=== PATIENT | male | born 1950 | race Caucasian/White ===

== ENCOUNTER 2016-06-06 19:15 | Inpatient (IN) | payer MEDICARE, OTHER ==
[~2016-06-06] VITALS: Ht 185.4 cm; Wt 97.2 kg
--- NOTE | ~2016-06-06 | HEMODYNAMI ---
PATIENT:BIMAL PALOMINO MEDICAL RECORD: [id number] : 46 LOCATION[id number] ADMISSION DATE: 06/06/16 Generatedon:06/12/201615:56 Patient name: BIMAL PALOMINO Patient #: [id number] SSN: [id number] : 1950 Date of study: 06/12/2016 Page: Of Hemodynamic Procedure Report Patient Data Patient Demographics Procedure consent was obtained First Name: BIMAL Gender: Male Last Name: CANDELARIO : 1950 Patient #: [id number] Age: 66 year(s) Race: Unknown SSN: [id number] Additional ID: [id number] Contact details Address: [address] [place] [address] State: [place] City: [facility] [place] Zip code: [address] Past Medical History Allergies: No known allergies Admission Admission Data Admission Date: 06/06/2016 Admission Time: 20:39 Arrival Date: 06/06/2016 Arrival Time: 20:39 Admit Source: Other Insurance Payor: Medicare Room #: D.2310 Weight (lbs.): 192.7 Weight (kg.): 87.41 Lab Results Lab Result Date: 06/11/2016 Lab Result Time: 0:00 Biochemistry Name Units Result Min Max BUN mg/dl 118 --(----)-* 7 18 Creatinine mg/dl 3.7 --(----)-* 0.6 1.3 CBC Name Units Result Min Max Hemoglobin g/dl 12 *-(----)-- 13.5 17.5 Procedure Procedure Types Cath Procedure Diagnostic Procedure FFR/IVUS Intra-Coronary IVUS Initial PCI Procedure Coronary Stent Initial Procedure Description Procedure Date Procedure Date: 06/12/2016 Procedure Start Time: 15:41 Procedure End Time: 15:55 Procedure Staff Name Function Mike Gtz MD Performing Physician Rio Jones RT Scrub Rose Way RN Nurse Debra Aguero RT Monitor [place] RT Monitor Procedure Data Cath Procedure Fluoroscopy Diagnostic fluoroscopy Total fluoroscopy Time: 2.1 time: 2.1 min min Diagnostic fluoroscopy Total fluoroscopy dose: 185 dose: 185 mGy mGy Contrast Material Contrast Material Type Amount (ml) Isovue 370 57 Entry Location Entry Primary Successful Side Size Upsize Upsize Entry Closure Succes sful Closure Location (Fr) 1 (Fr) 2 (Fr) Remarks Device Remarks Femoral Left 6 Fr Vascade artery Short Closure System Estimated blood loss: 10 ml Procedure Complications No complications Procedure Medications Medication Administration Route Dosage Oxygen NC 2 l/min Heparin Flush Bag added to field 2 bags (1000units/500ml NS) Lidocaine 2% added to field 20 Versed I.V. 1 mg Fentanyl 50 mcg Versed I.V. 1 mg Fentanyl 50 mcg Heparin Bolus I.V. 4000 units Hemodynamics Rest HGB: 12 (g/dl) Heart Rate: 55 (bpm) Snapshots Pre Cath Intra NCS Post Cath Vital Signs Time Heart Resp SPO2 NIBP (mmHg) Rhythm Pain Sedation Rate (ipm) (%) Status Level (bpm) 15:26:11 55 20 95 143/67(119) SB 0 (11) 10(A) , No pain 15:30:33 54 18 94 141/63(114) SB 0 (11) 10(A) , No pain 15:34:56 52 15 95 128/56(98) SB 0 (11) 10(A) , No pain 15:39:04 49 16 96 117/55(88) SB 0 (11) 10(A) , No pain 15:43:18 50 23 95 118/55(97) SB 0 (11) 9(A) , No pain 15:47:35 48 18 95 110/46(79) SB 0 (11) 9(A) , No pain 15:50:56 47 16 95 110/48(87) SB 0 (11) 9(A) , No pain 15:55:02 47 18 96 106/45(81) SB 0 (11) 9(A) , No pain Medications Time Medication Route Dose Verified Delivered Reason Notes Effectiveness by by 15:24:57 Oxygen NC 2 Mike Rose Per physician l/min Ulisses Way RN 15:25:07 Heparin Flush added 2 Mike Mckeon used for Bag to bags Ulisses Gtz MD procedure (1000units/500ml field NS) 15:25:16 Lidocaine 2% added 20ml Mike Marterey used for to vial Ulisses Gtz MD procedure field 15:38:58 Versed I.V. 1 mg Mike Rose for sedation Ulisses Way RN 15:39:06 Fentanyl 50 Mike Rose for sedation mcg Ulisses Way RN 15:41:28 Versed I.V. 1 mg Mike Rose for sedation Ulisses [address] RN 15:41:32 Fentanyl 50 Mike Rose for sedation mcg Ulisses Way RN 15:43:06 Heparin Bolus I.V. 4000 Mike Rose for dose units Ulisses Way RN anticoagulation verified by dr gtz Procedure Log Time Note 15:00:57 [place] RT(R) sent for patient. Start room use. 15:02:51 ACC Patient presents with Unstable Angina CCS Anginal Class 2--Slight limitation of ordinary activity. 15:02:54 Diagnostic Cath status Urgent 15:03:07 Time tracking: Regular hours 15:03:30 Plan of Care:Hemodynamics will remain stable., Cardiac rhythm will remain stable., Comfort level will be maintained., Respiratory function will remain adequate., Patient/ family verbilizes understanding of procedure., Procedure tolerated without complication., Recovers from procedure without complications.. 15:03:37 Patient received from ICU to CCL 1 Alert and oriented. Tansferred to table in Supine position. 15:03:50 Warm blankets applied, and chirag hugger turned on for patient comfort. 15:03:51 Correct patient and procedure confirmed by team. 15:03:52 Signed procedure consent form obtained from patient. 15:03:53 ECG and BP/O2 sat monitors applied to patient. 15:23:00 H&P Date Dictated: 06/11/2016 Within 30 days and on chart.. 15:23:04 Pre-procedure instructions explained to patient. 15:23:04 Pre-op teaching completed and patient verbalized understanding. 15:23:06 Family in waiting room. 15:23:07 Patient NPO since Midnight. 15:23:14 Is the patient allergic to Iodine/contrast media? Yes. 15:24:49 Vital chart was started 15:24:57 Oxygen 2 l/min NC was given by Rose Way RN; Per physician; 15:25:07 Heparin Flush Bag (1000units/500ml NS) 2 bags added to field was given by Mike Gtz MD; used for procedure; 15:25:12 Baseline sample Acquired. 15:25:16 Lidocaine 2% 20ml vial added to field was given by Mike Gtz MD; used for procedure; 15:25:16 Rhythm: sinus bradycardia 15:25:17 Full Disclosure recording started 15::29 Patient allergic to No known allergies 15:25:31 Is patient on blood thinner?Yes 15:25:33 ACC The patient was administered the following blood thiners within the last 24 hours: ACCPlavix 15:25:40 Patient diabetic? Yes. 15:25:42 If diabetic: On Metformin? No 15:25:44 Previous problem with sedation/anesthesia? No ? 15:25:49 Snore? Yes 15:25:50 Sleep apnea? No 15:25:51 Deviated septum? No 15:25:52 Opens mouth fully? Yes 15:25:53 Sticks out tongue? Yes 15:25:55 Airway obstruction? No ? 15:26:05 Dentures? No but does have lost teeth 15:26:09 Pre procedure: left dorsailis pedis pulse 1+ Palpable, but thready & weak; easily obliterated 15:26:13 Patient pain scale 0/10 ?. 15:26:24 IV patent on arrival in right hand with 0.9% NaCl at O. 15:26:27 Lab results completed and on chart. 15:26:31 Left groin area was prepped with chlora-prep and draped in sterile fashion 15:26:32 Alarms reviewed by R. N. 15:26:33 Sharps counted by scrub and verified by R.N. 15:26:36 Use device set Femoral PCI 15:26:38 Tegaderm 4 x 4 opened to sterile field. 15:26:38 Acist Manifold opened to sterile field. 15:26:39 Acist Syringe opened to sterile field. 15:26:40 Acist Hand Control opened to sterile field. 15:26:40 Bag Decanter opened to sterile field. 15::41 Cardinal Cath Pack opened to sterile field. 15:26:41 Terumo 6Fr Northport Sheath opened to sterile field. 15:26:41 St Sal 260cm J .035 wire opened to sterile field. 15:26:42 Merit BasixCompak Inflation Kit opened to sterile field. 15:26:50 Rosenbaum Whisper J 300cm 0.014 guide wire opened to sterile field. 15:26:51 Meadow [place] Eagleye IVUS Catheter opened to sterile field. ::44 --------ALL STOP TIME OUT------ 15::44 Final Timeout: patient, procedure, and site verified with staff and physician. All members of the team are in agreement. 15:38:47 Left groin site verified by team. 15:38:50 Physical assessment completed. ASA score P 2 - A patient with mild systemic disease as per Mike Gtz MD. 15:38:57 Sedation plan: IV Moderate Sedation Versed, Fentanyl 15:38:58 Versed 1 mg I.V. was given by Rose Way RN; for sedation; 15:39:06 Fentanyl 50 mcg was given by Rose Way RN; for sedation; 15:41:28 Versed 1 mg I.V. was given by Rose Way RN; for sedation; 15:41:32 Fentanyl 50 mcg was given by Rose Way RN; for sedation; 15:41:45 Procedure started. 15:41:52 Local anesthetic to left femerol artery with Lidocaine 2% by Mike Gtz MD.INITIAL ACCESS ONLY 15:42:08 A 6 Fr Short sheath was inserted into the Left Femoral artery 15:42:30 Cordis 6FR XBLAD 3.5 guide catheter opened to sterile field. 15:43:06 Heparin Bolus 4000 units I.V. was given by Rose Way RN; for anticoagulation; dose verified by dr gtz 15:43:20 6 Fr XBLAD 3.5 guide catheter was inserted over the wire 15:44:11 Whisper wire advanced. 15:44:20 Wire advanced across lesion. 15:44:29 IVUS catheter advanced over wire. 15:47:19 IVUS pass to LAD lesion performed. 15:47:20 IVUS catheter removed over wire. 15:48:34 Inflation Number: 1 A [place] NanoSystemstronic Integrity 3.5 X 22 stent was prepped and advanced across the Prox LAD. The stent was deployed at 13 SEN for 0:10 (min:sec). 15:48:45 Vascade 6/7 Fr Closure Device opened to sterile field. 15:49:00 Sheath removed intact; hemostasis achieved with Vascade Closure System to the Left Femoral artery. 15:49:08 Procedure ended.(Physican Out) 15:52:53 Fluoroscopy time 02.10 minutes. 15:53:04 Fluoroscopy dose: 185 mGy 15:53:04 Flurop Dose total: 185 15:53:07 Contrast amount:Isovue 370 57ml. 15:53:08 Sharps counted by scrub and verified by R.N. 15:53:10 Insertion/operative site no bleeding no hematoma. 15:53:16 Post-op/insertion site Left Femoral artery dressed using a 4 x 4 and Tegaderm. 15:53:18 Post Procedure Pulses reassessed and unchanged 15:53:20 Post-procedure physical assessment completed. ASA score P 2 - A patient with mild systemic disease as per Mike Gtz MD. 15:53:22 Post procedure rhythm: unchanged. 15:53:26 Estimated blood loss: 10 ml 15:53:27 Post procedure instruction explained to patient.Patient verbalizes understanding. 15:53:28 Patient needs reinforcement of post procedure teaching. 15:53:43 Procedure type changed to Cath procedure, Diagnostic procedure, FFR/IVUS, Intra-Coronary IVUS Initial, PCI procedure, Coronary Stent Initial 15:53:48 Procedure Complication : No complications 15:54:17 Procedure and supply charges have been captured, reviewed, submitted and are correct. 15:55:01 Vital chart was stopped 15:55:01 See physician's report for complete and final results. 15:55:47 Report given to ICU. 15:55:50 Patient transfered to ICU with Bed. 15:55:53 Procedure ended. 15:55:53 Full Disclosure recording stopped 15:56:30 ACC-PCI Only Patient was given prescriptions, or instructed by Mike Gtz MD to start/continue the following medications upon discharge: Plavix 15:56:31 End room use (Document Last) Intervention Summary Intervention Notes Time ActionType Lesion and Equipment Action# Pressure Duration Attributes Used 15:48:34 Place stent Prox LAD Medtronic 1 13 00:10 Integrity 3.5 X 22 stent Device Usage Item Name Manufacture Quantity Catalog Hospital Part Current Minima l Lot# / Number Charge Number Stock Stock Serial# Code Tegaderm 4 1 [id number] 120908 5 x 4 Acist Acist 1 53585 604748 109227 806195 5 Manifold Medical Systems Inc Acist Acist 1 98795 424884 537163 624907 20 Syringe Medical Systems Inc Acist Hand Acist 1 19767 342318 522246 461012 5 Control Medical Systems Inc Bag Microtek 1 2002S 886198 92801 254089 5 Decanter Medical Inc. Cardinal Cardinal 1 [id number] 264686 24601 279258 5 Cath Pack Health Terumo 6Fr Terumo 1 [id number] 960496 342647 459276 [address] Sal St Sal 1 618974 320483 503181 766197 30 260cm J .035 wire [facility] 1 [id number] 383052 865425 611278 15 BasixCompak Medical Inflation Kit Rosenbaum Rosenbaum 1 [id number] 110612 125801 935639 5 Whisper J Vascular 300cm 0.014 guide wire Meadow Meadow 1 [id number] 104843 505689 057362 8 [place] Eagleye IVUS Catheter Cordis 6FR Cardinal 1 [id number] 297314 929965 488653 10 XBLAD 3.5 Health guide catheter Medtronic Medtronic 1 [id number] 479535 241178 0 [id number] Integrity 3.5 X 22 stent Vascade 6/7 Cardiva 1 [id number] 461823 381465 499404 5 Fr Closure Medical, Device Inc. Signature Audit [place] Stage Time Signature Unsigned Intra-Procedure 06/12/2016 [place] 3:56:51 PM RT(R) Signatures Monitor : Debra Aguero RT Signature : Date : Time : Monitor : [place] RT Signature : Date : Time : [place] [address] [place] [address]
--- NOTE | ~2016-06-06 | HEMODYNAMI ---
PATIENT:BIMAL PALOMINO MEDICAL RECORD: [id number] : 46 LOCATION[id number] ADMISSION DATE: 06/06/16 Generatedon:06/11/201611:07 Patient name: BIMAL PALOMINO Patient #: [id number] SSN: [id number] : 1950 Date of study: 06/11/2016 Page: Of Hemodynamic Procedure Report Patient Data Patient Demographics Procedure consent was obtained First Name: BIMAL Gender: Male Last Name: CANDELARIO : 1950 Patient #: [id number] Age: 66 year(s) Race: Unknown SSN: [id number] Additional ID: [id number] Contact details Address: [address] [place] [address] State: [place] City: [facility] Zip code: [address] Admission Admission Data Admission Date: 06/06/2016 Admission Time: 20:39 Arrival Date: 06/06/2016 Arrival Time: 20:39 Admit Source: Other Insurance Payor: Medicare Room #: D.2310 Weight (lbs.): 192.7 Weight (kg.): 87.41 Lab Results Lab Result Date: 06/11/2016 Lab Result Time: 0:00 Biochemistry Name Units Result Min Max BUN mg/dl 118 --(----)-* 7 18 Creatinine mg/dl 3.7 --(----)-* 0.6 1.3 CBC Name Units Result Min Max Hemoglobin g/dl 12 *-(----)-- 13.5 17.5 Procedure Procedure Types Cath Procedure Diagnostic Procedure LHC [facility] w/Coronaries PCI Procedure Coronary Stent Initial Procedure Description Procedure Date Procedure Date: 06/11/2016 Procedure Start Time: 10:51 Procedure End Time: 11:01 Procedure Staff Name Function Mike Gtz MD Performing Physician Rio Jones RT Scrub Rose Way RN Nurse West Davis RT Grocery Stock Clerk Debra Aguero RT Monitor Procedure Data Cath Procedure Fluoroscopy Diagnostic fluoroscopy Total fluoroscopy Time: 2.7 time: 2.7 min min Diagnostic fluoroscopy Total fluoroscopy dose: 371 dose: 371 mGy mGy Contrast Material Contrast Material Type Amount (ml) Isovue 370 46 Entry Location Entry Primary Successful Side Size Upsize Upsize Entry Closure Succes sful Closure Location (Fr) 1 (Fr) 2 (Fr) Remarks Device Remarks Femoral Right 5 Fr 7 Fr Exoseal artery Short Estimated blood loss: 5 ml Diagnostic catheters Device Type Used For End Catheter Placement Cordis 5Fr Pigtail LV Angiography Catheter (MP) Cordis 5Fr JL 4.0 Left Coronary Catheter (MP) Angiography Cordis 5Fr 3DRC Catheter Right Coronary (MP) Angiography Procedure Complications No complications Procedure Medications Medication Administration Route Dosage Oxygen NC 2 l/min Heparin Flush Bag added to field 2 bags (1000units/500ml NS) Lidocaine 2% added to field 20 Versed I.V. 1 mg Fentanyl I.V. 50 mcg Fentanyl I.V. 25 mcg Heparin Bolus I.V. 4000 units Integrilin (Bolus I.V. 7.9 ml 2mg/ml) Plavix P.O. 600 mg Hemodynamics Rest Heart Rate: 69 (bpm) Pressure Samples Time Site Value (mmHg) Purpose Heart Use Rate(bpm) 10:52 LV 64/20,25 Snapshot 67 Snapshots Pre Cath Intra NCS Post Cath Vital Signs Time Heart Resp SPO2 NIBP (mmHg) Rhythm Pain Sedation Rate (ipm) (%) Status Level (bpm) 10:41:56 65 18 94 142/73(118) NSR 0 (11) 10(A) , No pain 10:46:12 70 19 94 143/74(113) NSR 0 (11) 10(A) , No pain 10:50:32 64 18 95 129/63(94) NSR 0 (11) 9(A) , No pain 10:54:48 63 17 96 119/60(83) NSR 0 (11) 9(A) , No pain 10:59:00 61 16 95 105/56(84) NSR 0 (11) 9(A) , No pain 11:04:24 66 16 96 118/57(89) NSR 0 (11) 10(A) , No pain Medications Time Medication Route Dose Verified Delivered Reason Notes Effectiveness by by 10:44:04 Oxygen NC 2 Mike Rose Per physician l/min Ulisses Way RN 10:44:11 Heparin Flush added 2 Mike Mike for local Bag to bags Ulisses Gtz MD anesthetic (1000units/500ml field NS) 10:44:18 Lidocaine 2% added 20ml Mike Mckeon used for to vial Ulisses Gtz MD procedure field 10:48:32 Fentanyl I.V. 50 Mike Rose for sedation mcg Ulisses Way RN 10:48:34 Versed I.V. 1 mg Mike Rose for sedation Ulisses Way RN 10:52:35 Fentanyl I.V. 25 Mike Rose for sedation mcg Ulisses Way RN 10:56:25 Heparin Bolus I.V. 4000 Mike Rose for dose units Ulisses Way RN anticoagulation verified with dr gtz 10:57:22 Integrilin I.V. 7.9 Rose Rose for (Bolus 2mg/ml) ml Rayna Way RN anticoagulation RN 11:03:42 Plavix P.O. 600 Rose Rose for mg Rayna Way RN antiplatelet RN therapy Procedure Log Time Note 10:07:22 ACC Patient presents with Unstable Angina CCS Anginal Class 2--Slight limitation of ordinary activity. 10:07:24 Diagnostic Cath status Urgent 10:07:27 [place] Davis RT(R) sent for patient. Start room use. 10:17:51 Time tracking: Regular hours 10:18:55 Plan of Care:Hemodynamics will remain stable., Cardiac rhythm will remain stable., Comfort level will be maintained., Respiratory function will remain adequate., Patient/ family verbilizes understanding of procedure., Procedure tolerated without complication., Recovers from procedure without complications.. 10:21:08 Informed consent obtained and on chart 10:24:26 Admit Source: Other 10::46 Lab Result : Creatinine 3.7 mg/dl 10::46 Lab Result : BUN 118 mg/dl 10::46 Lab Result : Hemoglobin 12 g/dl 10:33:58 Patient received from ICU to CCL 1 Alert and oriented. Tansferred to table in Supine position. 10:33:59 Warm blankets applied, and chirag hugger turned on for patient comfort. 10:33:59 Correct patient and procedure confirmed by team. 10:34:02 ECG and BP/O2 sat monitors applied to patient. 10:40:52 Vital chart was started 10:40:57 Rhythm: sinus rhythm 10:40:59 Full Disclosure recording started 10:41:09 H&P Date Dictated: 06/11/2016 Within 30 days and on chart.. 10:41:10 Pre-procedure instructions explained to patient. 10:41:11 Pre-op teaching completed and patient verbalized understanding. 10:41:13 Family unavailable. 10:41:21 Patient NPO since Midnight. 10:41:22 Is the patient allergic to Iodine/contrast media? No. 10:41:25 Is patient on blood thinner?No 10:41:27 ACC The patient was administered the following blood thiners within the last 24 hours: None 10:41:31 Patient diabetic? Yes. 10:41:34 Previous problem with sedation/anesthesia? Unknown ? 10:41:36 Snore? Yes 10:41:37 Sleep apnea? Unknown 10:41:39 Deviated septum? Unknown 10:41:41 Opens mouth fully? Unknown 10:41:42 Sticks out tongue? Unknown 10:41:44 Airway obstruction? Unknown ? 10:41:46 Dentures? Unknown ? 10:41:49 Pre procedure: right dorsailis pedis pulse 1+ Palpable, but thready & weak; easily obliterated 10:42:05 PT HAS A RESERVE LEFT ARM 10:42:10 Patient pain scale 0/10 ?. 10:42:38 IV patent on arrival in right hand with 0.9% NaCl at KVO. 10:43:36 Patient arrived on Potassium at 100 ml/hr IV drip right antecubital 10:43:48 Lab results completed and on chart. 10:43:53 Right groin area was prepped with chlora-prep and draped in sterile fashion 10:43:54 Alarms reviewed by R. N. 10:43:54 Sharps counted by scrub and verified by R.N. 10:44:04 Oxygen 2 l/min NC was given by Rose Way RN; Per physician; 10:44:05 Use device set Femoral Dx 10:44:06 Tegaderm 4 x 4 opened to sterile field. 10:44:07 Acist Manifold opened to sterile field. 10:44:08 Acist Hand Control opened to sterile field. 10:44:09 Acist Syringe opened to sterile field. 10:44:09 Bag Decanter opened to sterile field. 10:44:10 Cardinal Cath Pack opened to sterile field. 10:44:10 Terumo 5Fr Wolsey Sheath opened to sterile field. 10:44:11 Heparin Flush Bag (1000units/500ml NS) 2 bags added to field was given by Mike Gtz MD; for local anesthetic; 10:44:11 St Sal 260cm J .035 wire opened to sterile field. 10:44:12 Cordis Infinity 5Fr Multipack catheter opened to sterile field. 10:44:18 Lidocaine 2% 20ml vial added to field was given by Mike Gtz MD; used for procedure; 10:46:33 Patient Weight : 87.41 kg 10:46:34 Insurance Payor : Medicare 10:46:40 Arrival Date: 06/06/2016 8:39:00 PM 10:48:18 Physician arrived 10:48:18 --------ALL STOP TIME OUT------ 10:48:19 Final Timeout: patient, procedure, and site verified with staff and physician. All members of the team are in agreement. 10:48:21 Right groin site verified by team. 10:48:24 Physical assessment completed. ASA score P 3 - A patient with severe systemic disease as per Mike Gtz MD. 10:48:28 Sedation plan: IV Moderate Sedation Versed, Fentanyl 10:48:32 Fentanyl 50 mcg I.V. was given by Rose Way RN; for sedation; 10:48:34 Versed 1 mg I.V. was given by Rose Way RN; for sedation; 10:48:56 Procedure started. 10:50:01 Zero performed for pressure channel P1 10:50:13 Zero performed for pressure channel P1 10:50:20 Zero performed for pressure channel P1 10:50:32 Zero performed for pressure channel P1 10:50:47 Zero performed for pressure channel P1 10:51:42 Local anesthetic to right femoral artery with Lidocaine 2% by Mike Gtz MD.INITIAL ACCESS ONLY 10:52:01 A 5 Fr sheath was inserted into the Right Femoral artery 10:52:10 A Cordis 5Fr Pigtail Catheter (MP) was advanced over the wire and used for LV Angiography. 10:52:19 Baseline sample Acquired. 10:52:35 Fentanyl 25 mcg I.V. was given by Rose Way RN; for sedation; 10:52:49 LV hemodynamics recorded. 10:52:50 LV gram done using MERINO 10:52:53 Injector settings: Ml/sec: 5, Volume: 15, 10:52:58 EF : 50 % 10:53:01 Catheter removed. 10:53:05 A Cordis 5Fr JL 4.0 Catheter (MP) was advanced over the wire and used for Left Coronary Angiography. 10:53:45 LCA angiography performed. 10:53:48 Injector settings: Ml/sec: 3, Volume: 6, 10:54:09 Catheter removed. 10:54:14 A Cordis 5Fr 3DRC Catheter (MP) was advanced over the wire and used for Right Coronary Angiography. 10:54:39 RCA angiography performed. 10:55:02 Injector settings: Ml/sec: 3, Volume: 6+, 10:55:04 Catheter removed. 10:55:09 Proceeding to intervention. 10:55:32 Rosenbaum Whisper J 300cm 0.014 guide wire opened to sterile field. 10:55:34 Terumo 7Fr Wolsey Sheath opened to sterile field. 10:55:34 2[place] BasixCompak Inflation Kit opened to sterile field. 10:56:25 Heparin Bolus 4000 units I.V. was given by Rose Way RN; for anticoagulation; dose verified with dr gtz 10:56:28 Medtronic Launcher 7Fr AR 2.0 guide catheter opened to sterile field. 10:56:39 Sheath upsized to a 7 Fr Short. 10:56:44 7 Fr ar 2 guide catheter was inserted over the wire 10:56:48 whisper wire advanced. 10:57:22 Integrilin (Bolus 2mg/ml) 7.9 ml I.V. was given by Rose Way RN; for anticoagulation; 10:59:24 Inflation Number: 1 A Medtronic Integrity 3.5 X 26 stent was prepped and advanced across the Mid RCA. The stent was deployed at 17 SEN for 0:10 (min:sec). 10:59:29 Stent catheter was removed intact over wire. 10:59:30 Wire removed. 10:59:30 Guide catheter removed. 10:59:42 Cordis 7Fr Exoseal opened to sterile field. 11:00:23 Sheath removed intact; hemostasis achieved with Exoseal to the Right Femoral artery. 11:00:25 Procedure ended.(Physican Out) 11:00:37 Fluoroscopy time 02.70 minutes. 11:00:43 Fluoroscopy dose: 371 mGy 11:00:43 Flurop Dose total: 371 11:00:48 Contrast amount:Isovue 370 46ml. 11:01:02 Sharps counted by scrub and verified by R.N. 11:01:04 Insertion/operative site no bleeding no hematoma. 11:01:06 Post-op/insertion site Right Femoral artery dressed using a 4 x 4 and Tegaderm. 11:01:09 Post right femoral artery:stable 11:01:11 Post Procedure Pulses reassessed and unchanged 11:01:14 Post procedure rhythm: unchanged. 11:01:17 Estimated blood loss: 5 ml 11:01:19 Post procedure instruction explained to patient.Patient verbalizes understanding. 11:01:19 Patient needs reinforcement of post procedure teaching. 11:01:33 Procedure type changed to Cath procedure, Diagnostic procedure, LHC, LHC w/Coronaries, PCI procedure, Coronary Stent Initial 11:01:34 Procedure and supply charges have been captured, reviewed, submitted and are correct. 11:01:39 Procedure Complication : No complications 11:01:41 Vital chart was stopped 11:01:41 See physician's report for complete and final results. 11:01:46 Report given to ICU. 11:01:48 Patient transfered to ICU with Stretcher. 11:01:49 Procedure ended. 11:01:49 Full Disclosure recording stopped 11:02:04 ACC-PCI Only Patient was given prescriptions, or instructed by Mike Gtz MD to start/continue the following medications upon discharge: Plavix 11:02:05 End room use (Document Last) 11:03:42 Plavix 600 mg P.O. was given by Rose Way RN; for antiplatelet therapy; Intervention Summary Intervention Notes Time ActionType Lesion and Equipment Action# Pressure Duration Attributes Used 10:59:24 Place stent Mid RCA Medtronic 1 17 00:10 Integrity 3.5 X 26 stent Device Usage Item Name Manufacture Quantity Catalog Hospital Part Current Minimal Lot# / Number Charge Number Stock Stock Serial# Code Tegaderm 4 3M 1 1626 [id number] [id number] 5 x 4 Acist Acist 1 38280 698406 349087 207753 5 Manifold Medical Systems Inc Acist Hand Acist 1 53519 188609 595770 841311 5 Control Medical Systems Inc Acist Acist 1 61426 425074 621179 064525 20 Syringe Medical Systems Inc Bag Microtek 1 2002S 2499444 01338 174607 5 DecProperati Medical Inc. Cardinal Cardinal [address] 491286 56773 208210 5 Cath Pack Health Terumo 5Fr Terumo 1 [id number] 579405 746022 270726 [address] Sal St Sal 1 123868 253975 466050 412894 30 260cm J .035 wire Cordis Cardinal 1 [id number] 849503 32569 984617 30 Infinity Health 5Fr Multipack catheter Cordis 5Fr Cardinal 1 032729 5 Pigtail Health Catheter (MP) Cordis 5Fr Cardinal 1 427177 5 JL 4.0 Health Catheter (MP) Cordis 5Fr Cardinal 1 578619 5 3DRC Health Catheter (MP) Rosenbaum Rosenbaum 1 [id number] 460262 917197 365942 5 Whisper J Vascular 300cm 0.014 guide wire Terumo 7Fr Terumo 1 [id number] 932672 160093 099214 5 Wolsey Sheath [facility] Merit 1 [id number] 597615 519494 612850 15 [facility] Medical Inflation Kit Medtronic Medtronic 1 [id number] 817488 645674 831095 0 Launcher 7Fr AR 2.0 guide catheter Medtronic Medtronic 1 [id number] 851460 001094 822122 0 [id number] Integrity 3.5 X 26 stent Cordis 7Fr Cardinal 1 EX700 415049 541524 690821 5 [facility] Health Signature Audit [place] Stage Time Signature Unsigned Intra-Procedure 06/11/2016 Debra Aguero 11:07:08 AM RT(R) Signatures Monitor : Debra Aguero RT Signature : Date : Time : [facility] [address] [place] [address]
[2016-06-06 19:48] LABS: APTT 29.4 SECONDS (22.8-39.4); INR 1.19 (0.85-1.17)
[2016-06-06 19:56] LABS: ALBUMIN 3.3 g/dL (3.4-5.0); ALKALINE PHOSPHATASE 84 U/L (46-116); ALT (SGPT) 34 U/L (10-68); BILIRUBIN - TOTAL 0.63 mg/dL (0.2-1.3); CALC OSMOLALITY 319 mosm/kg (275-300); CALCIUM 10.2 mg/dL (8.5-10.1); CHLORIDE - SERUM 102 mmol/L (98-107); CREATININE - SERUM 3.4 mg/dL (0.6-1.3); GLUCOSE 392 mg/dL (74-106); POTASSIUM - SERUM 3.1 mmol/L (3.5-5.1); PROTEIN - SERUM 6.7 g/dL (6.4-8.2); SODIUM 142 mmol/L (136-145); UREA NITROGEN 70 mg/dL (7-18); eGFR NON AFRICAN AMERICAN 19 mL/min (90-120)
[2016-06-06 20:06] LABS: CKMB 2.6 U/L (0.0-3.6); CREATINE KINASE 132 UL (21-232); TROPONIN-I 0.058 ng/mL (0.000-0.060)
[2016-06-06 20:18] LABS: BASOPHILS 0.2 % (0.0-2.0); EOSINOPHILS 2.5 % (0-7); HEMATOCRIT 31.7 % (42.0-54.0); HEMOGLOBIN 10.2 g/dL (13.5-17.5); IMMATURE GRANULOCYTES 0.9 % (0-5); LYMPHOCYTES 24.9 % (15-50); MCH 31.7 pg (26.0-34.0); MCHC 32.2 g/dL (31.0-37.0); MCV 98.4 fL (80.0-100.0); MEAN PLATELET VOLUME 11.3 fL (7.4-10.4); NEUTROPHILS 65.5 % (40-80); PLATELET COUNT 223 10x3/uL (130-400); RBC 3.22 10x6/uL (4.20-6.10); WBC 13.9 10x3/uL (4.8-10.8)
--- NOTE | 2016-06-06 21:30 | NUR ---
UPDATE GIVEN TO DR. SORIA, NEW ORDERS RECIEVED,
[2016-06-06 21:33] VITALS: BP 160/92; BMI 28.0
--- NOTE | 2016-06-06 21:49 | NUR ---
PT RECIEVED. FAMILY AT BEDSIDE. DR EDUARDO BENAVIDEZ. NEW ORDERS RECIEVED. WILL CONTINUE TO MONITOR.
[2016-06-06 22:00] VITALS: BP 152/67
[2016-06-06 23:00] VITALS: BP 167/78
--- NOTE | 2016-06-06 23:45 | NUR ---
PT FAMILY GIVEN UDPATE. VSS NO NEW CHANGES AT THIS TIME. WILL CONTINUE TO MONITOR.
[2016-06-07] VITALS (25 sets, daily range): BP systolic 100–152; BP diastolic 54–78; Ht 185.4 cm; Wt 97.2 kg
--- NOTE | 2016-06-07 01:17 | NUR ---
VENT ALARMING. ORAL CARE ADM. NEEDS MET
--- NOTE | 2016-06-07 03:20 | NUR ---
REASSESSMENT COMPLETE PER FLOW SHEET. NO NEW CHANGES AT THIS TIME. WILL COTINUE TO MONITOR.
--- NOTE | 2016-06-07 04:12 | NUR ---
REASSESSMENT COMPLETE PER FLOW SHEET. VSS. NO NEW CHANGES AT THIS TIME. WILL CNOTINUE TO MONITOR.
[2016-06-07 05:24] LABS: BASOPHILS 0.1 % (0.0-2.0); EOSINOPHILS 0.1 % (0-7); HEMATOCRIT 27.7 % (42.0-54.0); IMMATURE GRANULOCYTES 0.3 % (0-5); LYMPHOCYTES 6.5 % (15-50); MCH 30.7 pg (26.0-34.0); MCHC 32.5 g/dL (31.0-37.0); MONOCYTES 6.4 % (2-11); NEUTROPHILS 86.6 % (40-80); RBC 2.93 10x6/uL (4.20-6.10); RDW 15.8 % (11.5-14.5); WBC 11.8 10x3/uL (4.8-10.8)
--- NOTE | 2016-06-07 05:46 | NUR ---
REPOSITIONED UP IN BED. VSS NO NEW CHANGES AT THIS TIME. WILL CONTINUE TO MONITOR.
[2016-06-07 06:01] LABS: MCV 94.5 fL (80.0-100.0); PLATELET COUNT 178 10x3/uL (130-400)
[2016-06-07 06:29] LABS: ANION GAP 14.9 mmol/L (8-16); CALCIUM 9.3 mg/dL (8.5-10.1); CARBON DIOXIDE 25.5 mmol/L (21.0-32.0); CREATININE - SERUM 3.2 mg/dL (0.6-1.3); POTASSIUM - SERUM 3.4 mmol/L (3.5-5.1)
[2016-06-07 06:37] LABS: TROPONIN-I 0.675 ng/mL (0.000-0.060)
--- NOTE | 2016-06-07 07:00 | NUR ---
REC'D CARE OF PT. SEDATED ON VENT.FOLLOWS COMMANDS.
--- NOTE | 2016-06-07 07:29 | NUR ---
TRYING TO PULL AT ETT. AGITATED. DIPRIVAN BEING TITRATED TO EFFECT.VSS.
--- NOTE | 2016-06-07 07:41 | NUR ---
INITIAL ASSESSMENT COMPLETED PER FLOW SHEET. ON VENT. AC RATE OF 20. TV 600. PEEP OF 5. ON 50% FIO2. OGT TO LIWS. PLACEMENT VIERIFIED WITH SMALL AIR BOLUS AUSCULTATED OVER GASTRIC REGION. RIGHT AC PIV WITH NS AT KVO AND DIPRIVAN BEING TITRTATED TO EFFECT. NO S/S OF INFILTATION. WALL PATENT TO GRAVITY WITH CL Y RETURNED IN BAG. SCD'S. FOLLOWS COMMANDS. PPP. CPOC.
--- NOTE | 2016-06-07 07:51 | NUR ---
DESATS IN 80%. NUZHAT RT AT BEDSIDE.INCREASING FIO2 TO 70%.
--- NOTE | 2016-06-07 08:19 | NUR ---
TO CT FOR CT OF HEAD AND BACK WITHOUT INCIDENT. ACCOPMANIED BY NUZHAT ODOM FOR VENT MANAGEMENT.
--- NOTE | 2016-06-07 08:45 | NUR ---
SEDATED TO RIKERS OF 2-3.
--- NOTE | 2016-06-07 08:55 | NUR ---
PATIENT IS ON THE VENT AND SEDATED. HE IS UNABLE TO ANSWER QUESTIONS. I HAVE NOT SEEN ANY FAMILY HERE TO INTERVIEW. CM TO FOLLOW.
--- NOTE | 2016-06-07 09:18 | NUR ---
FAMILY AT BEDSIDE. UPDATED.
--- NOTE | 2016-06-07 10:54 | NUR ---
REASSESSMENT COMPLETED PER FLOW SHEET. NO ACUTE CHANGES.
--- NOTE | 2016-06-07 12:00 | NUR ---
FAMILY AT [facility]. UPDATED.
--- NOTE | 2016-06-07 14:00 | NUR ---
REMAINS SEDATED ON VENT. NO ACUTE CHANGES.
--- NOTE | 2016-06-07 15:18 | NUR ---
REASSESSMENT COMPLETED PER FLOW SHEET. NO ACUTE CHANGES. WAKES UP AND FOLLOWS COMMANDS WITH DIPRIVAN PAUSED. SEDATED NOW TO RIKERS OF 2-3. RR 20. SATTING 94% ON 50% FIO2. VENT BEING MANAGED BY NUZHAT GODOY CPOC
--- NOTE | 2016-06-07 15:49 | NUR ---
SURE STEP WALL CARE PERFORMED.
--- NOTE | 2016-06-07 16:23 | EC ---
PATIENT:BIMAL PALOMINO DATE OF SERVICE: 06/06/16 SEX: M MEDICAL RECORD: [id number] DATE OF : [birth year] LOCATION:[facility] AGE OF PATIENT: 66 ADMISSION DATE: 06/06/16 REFERRING PHYSICIAN: INTERPRETING PHYSICIAN: SABI GTZ MD ECHOCARDIOGRAM REPORT ECHO CHARGES 4 ECHO COMPLETE CLINICAL DIAGNOSIS: ASSESS LV FUNCTION/CHF ECHOCARDIOGRAPHIC MEASUREMENTS (adult normal given) AC root (d.<3.7cm) 3.2 LV Septum d (<1.2 cm> 1.7 Valve Excursion 1.1 LV Septum (systole) 2.2 Left Atria (s.<4.0cm> 4.4 LVPW d(<1.2cm) 2.1 RV (d.<2.3cm) 4.6 LVPW (sytole) 2.5 LV diastole(<5.6CM) 4.5 MV E-F(>70mm/sec) LV systole 2.5 LVOT Diameter 1.1 MV exc.(>10mm) 1.5 Est.ejection fraction (50-75%) Pericardial Effusion Y DOPPLER: LVIT A 52.0 E 152 LA RVSP 23 LVOT 119 AOP1/2T 607 Asc. Ao 255 RVOT 99 RA PA 154 AV Gradient Peak 26.05 AV Mean 16.35 AV Area 1.2 MV Gradient Peak 9.67 MV Mean 3.3 MV Area COMMENTS: Caustic Mixer: Iliana MICHAELS Avionics Systems Technician:1 Dr. Gtz TAPE# PACS DATE OF SERVICE: 06/07/2016 Echocardiogram FINDINGS: 1. Left ventricular chamber size is within normal limits. Left ventricular systolic function is normal. Overall ejection fraction estimated at 60%. 2. Left atrium is enlarged at 4.1 cm. Right atrium and right ventricular chamber sizes are as well mildly dilated. 3. Valvular structures: Aortic valve demonstrates mild calcific aortic ECHOCARDIOGRAM REPORT [id number] BIMAL PALOMINO stenosis. Valve area calculates to 1.2 cm-squared. There is a gradient of 26 mm across the valve. The remaining valvular structures have normal structure and motion. 4. Doppler interrogation reveals mild mitral regurgitation, mild tricuspid regurgitation, no other valvular insufficiency or stenosis and pulmonary systolic pressure is normal estimated at 23 mmHg. 5. No evidence of pericardial effusion or left ventricular thrombus. TRANSINT:[id number] Voice Confirmation ID: [id number] DOCUMENT ID: [id number] SABI GTZ MD at 1623 CC: [id number] DICTATION DATE: 06/07/16 1321 COMMUNITY SERVICES COORDINATOR: 06/07/16 1342 ADM IN [place] [id number] [place] [id number]
--- NOTE | 2016-06-07 18:12 | NUR ---
FAMILY AT BEDSIDE. UPDATED.
--- NOTE | 2016-06-07 18:14 | NUR ---
SEDATED ON VENT TO RIKERS 2-3. AC RATE OF 20, TV 600, FIO2 50%, PEEP OF 7. SATTING 96%. DIPRIVAN BEING TITRATED TO EFFECT. VSS. SCD'S. CPOC.
--- NOTE | 2016-06-07 19:00 | NUR ---
REPORT REC'D, PT'S CARE ASSUMED. ASSESSMENT COMPLETED PER FLOW SHEETS. PT SEDATED ON VENT, AROUSES WITH TACTILE STIMULATION, NO COMMANDS FOLLOWS. SEE VENT SETTINGS PER FLOW SHEETS. SR ON CM WITH HR TO 76. LUNG SOUNDS CRACKLS/ DIMINSIEHD TO LLB. O2 SAT 96% ON FIO2 AT 50%. RT AC PIV INTACT, NO REDNESS OR IRRITATION NOTED. WALL INTACT TO GRAVITY WITH CL/Y DRAINAGE TO BAG. PPP. SCD'S OFF FOR SKIN INTEGRITY. REPOSITONED FOR COMFORT. CONT TO MONITOR.
--- NOTE | 2016-06-07 21:00 | NUR ---
NO VISITORS AT THIS TIME. SCHEDULED MEDS GIVEN PER ORDER. MOUTH CARE PER VAP PROVIDED. REPOSITIONED FOR COMFORT, PILLOWS IN USE FOR SUPPORT. CPOC.
--- NOTE | 2016-06-07 23:00 | NUR ---
REASSESSMENT COMPLETED. SEE FLOW SHEETS FOR ALL FINDINGS. PT SEDATED ON VENT WITHOUT SINGS OF DISTRESS, VSS. NO CHANGES FOR PRIOR NOTED. CPOC.
[2016-06-08] VITALS (25 sets, daily range): BP systolic 135–181; BP diastolic 53–81
--- NOTE | 2016-06-08 01:00 | NUR ---
REPOSITIONED FOR COMFORT. MOUTH CARE PROVIDED PER VAP. VSS.
--- NOTE | 2016-06-08 03:00 | NUR ---
REASSESSMENT COMPLETED. SEE FLOW SHEETS FOR ALL FINDINGS. PT SEDATED ON VENT AROUSES WITH VOICES. NO SIGNS OF DISTRESS NOTED. VSS. CPOC
[2016-06-08 05:44] LABS: BASOPHILS 0 % (0.0-2.0); EOSINOPHILS 0 % (0-7); HEMATOCRIT 27.4 % (42.0-54.0); HEMOGLOBIN 9.1 g/dL (13.5-17.5); IMMATURE GRANULOCYTES 0.3 % (0-5); LYMPHOCYTES 2.7 % (15-50); MCH 31.5 pg (26.0-34.0); MCHC 33.2 g/dL (31.0-37.0); MCV 94.8 fL (80.0-100.0); MEAN PLATELET VOLUME 11.5 fL (7.4-10.4); MONOCYTES 3.4 % (2-11); NEUTROPHILS 93.6 % (40-80); PLATELET COUNT 160 10x3/uL (130-400); RBC 2.89 10x6/uL (4.20-6.10); RDW 16.1 % (11.5-14.5); WBC 11.6 10x3/uL (4.8-10.8)
[2016-06-08 06:28] LABS: ALBUMIN 2.7 g/dL (3.4-5.0); ALKALINE PHOSPHATASE 63 U/L (46-116); ALT (SGPT) 34 U/L (10-68); CALCIUM 8.7 mg/dL (8.5-10.1); CARBON DIOXIDE 22.9 mmol/L (21.0-32.0); CHLORIDE - SERUM 102 mmol/L (98-107); CKMB 1.6 U/L (0.0-3.6); CREATINE KINASE 112 UL (21-232); CREATININE - SERUM 3.8 mg/dL (0.6-1.3); MAGNESIUM - SERUM 1.6 mg/dL (1.8-2.4); PHOSPHOROUS 4.1 mg/dL (2.5-4.9); PRO BNP 6703 pg/mL (0-125); PROTEIN - SERUM 6.2 g/dL (6.4-8.2); SODIUM 141 mmol/L (136-145); UREA NITROGEN 84 mg/dL (7-18); eGFR NON AFRICAN AMERICAN 17 mL/min (90-120)
[2016-06-08 06:29] LABS: CALC OSMOLALITY 318 mosm/kg (275-300); GLUCOSE 313 mg/dL (74-106); TROPONIN-I 0.279 ng/mL (0.000-0.060)
--- NOTE | 2016-06-08 07:00 | NUR ---
REC'D REPORT AND RESUMED CARE, ETT TO VENTILATION AND SECURED, FIO2 AT 50%, SAT 97%, OTHER VSS, OGT TO LIWS, GREEN DRAINAGE TO CANINSTER, LEFT ARM WITH FISTULA BRUIE AND THRILL NOTED, RIGHT QAC PIV WITH PROPOFAL AT 40 MCG, RITHG UPPER ARM PIV WITH NS AT 10 CC/HR, WALL TO GRAVITY WITH CLEAR YELLOW DRAINAGE TO BAG, SCCD'S B/L, ORAL CARE AND SUCTION COMPLETED, ASSESSMENT COMPLETE PER FLOWSHEET, REPOSITIONED TO LEFT SIDE WITH PILLOW TO BACK AND HEELS FLOATED. SEDATION IN USE, RESPONDS TO DEEP STIMULI
--- NOTE | 2016-06-08 10:06 | NUR ---
NUTRITION MONITORING & EVAL CHART REVIEWED. PT REMAINS ON VENT. DIPRIVAN @ 30 CC/HR. IF UNABLE TO WEAN FROM VENT, RECOMMEND PULMOCARE TUBE FEEDS. 1)PULMOCARE @ 10 CC/HR 2)INCREASE 10 CC/HR Q 8 HOURS TOLERATED TO GOAL RATE 40 CC/HR. 3)50 CC H2O FLUSH Q [address] FOLLOWING
--- NOTE | 2016-06-08 11:00 | NUR ---
NO ACUTE CHANGE FROM PREVIOUS ASSESSMENT, VSS, ORAL CARE AND SUCTION COMPLETED, REPOSITIONED TO LEFT SIDE WITH PILLOW PROPPED TO BACK AND HEELS FLOATED
--- NOTE | 2016-06-08 15:00 | NUR ---
ORAL CARE AND SUCTION COMPLETED, REPOSITIONED TO RIGHT SIDE WITH PILLOW PROPPED TO BACK AND HEELS FLOATED, VSS NO SIGNS OF DISTRESS, ASSESSMENT COMPLETE,
--- NOTE | 2016-06-08 17:42 | NUR ---
DR BUTTERFIELD HERE FOR EVAL NEW ORDERS GIVEN
--- NOTE | 2016-06-08 17:50 | NUR ---
AIR OVERLAY MATTRESS APPLIED TO BED, TOLERATED PROCEDURE WITHOUT DIFFICULTY
--- NOTE | 2016-06-08 19:00 | NUR ---
RECEIVED REPORT, ASSESSMENT COMPLETE. PATIENT SEDATED AND ON VENT, SEE ASSESSMENT FOR VENT DETAILS. OGT HOOKED TO LIWS WITH DARK GREEN BILE IN CANISTER. S1S2 NOTED WITH PAC AND SINUS CRYSTAL WITH A RATE OF 56 BPM. CRACKLES HEARD IN UPPER LOBES AND RML, DIMINISHED IN LOWERS. BOWEL SOUNDS HYPOACTIVE WITH DISTENDED AND SOFT ABDOMEN. WALL CATHETER DRAINING CLEAR YELLOW URINE. PIV IN RAC, CDI. LEFT ARM RESERVED. FISTULA IN LFA, THRILL FELT, BRUIT HEARD. SEE ASSESSMENT FLOWSHEET FOR MORE DETAILS. VSS, WILL CONTINUE TO MONITOR.
--- NOTE | 2016-06-08 20:00 | NUR ---
TUBE FEEDINGS STARTED. PULMOCARE @ 20CC/HR. OG TUBE PLACEMENT VERIFIED WITH AIR BOLUS.
--- NOTE | 2016-06-08 21:00 | NUR ---
NO VISITORS AT THIS TIME, VSS.
--- NOTE | 2016-06-08 23:00 | NUR ---
NO ACUTE CHANGES FROM PREVIOUS ASSESSMENT. VSS. ORAL CARE COMPLETE. WILL CONTINUE TO MONITOR.
[2016-06-09] VITALS (22 sets, daily range): BP systolic 144–204; BP diastolic 55–124
--- NOTE | 2016-06-09 01:00 | NUR ---
PIV IN RIGHT AC STARTED TO LEAK, NEW 20G PIV STARTED IN RIGHT HAND, 1 ATTEMPT, FLUSHES EASY, PATIENT DOES NOT APPEAR TO BE IN PAIN.
--- NOTE | 2016-06-09 03:00 | NUR ---
REASSESSMENT COMPLETE. NO ACUTE CHANGES.
--- NOTE | 2016-06-09 05:00 | NUR ---
BED BATH GIVEN, COMPLETE LINEN CHANGE. PATIENT TOLERATED WELL.
[2016-06-09 05:46] LABS: BASOPHILS 0 % (0.0-2.0); EOSINOPHILS 0 % (0-7); HEMATOCRIT 28.1 % (42.0-54.0); HEMOGLOBIN 9.3 g/dL (13.5-17.5); IMMATURE GRANULOCYTES 0.4 % (0-5); LYMPHOCYTES 5.2 % (15-50); MCH 31.3 pg (26.0-34.0); MCHC 33.1 g/dL (31.0-37.0); MCV 94.6 fL (80.0-100.0); MEAN PLATELET VOLUME 11.2 fL (7.4-10.4); NEUTROPHILS 91.4 % (40-80); PLATELET COUNT 166 10x3/uL (130-400); RBC 2.97 10x6/uL (4.20-6.10); WBC 12.9 10x3/uL (4.8-10.8)
[2016-06-09 05:51] LABS: ALBUMIN 2.8 g/dL (3.4-5.0); ANION GAP 20.8 mmol/L (8-16); BILIRUBIN - TOTAL 0.58 mg/dL (0.2-1.3); CALCIUM 8.9 mg/dL (8.5-10.1); CARBON DIOXIDE 24.4 mmol/L (21.0-32.0); CREATININE - SERUM 3.8 mg/dL (0.6-1.3); POTASSIUM - SERUM 3.2 mmol/L (3.5-5.1)
[2016-06-09 05:52] LABS: PHOSPHOROUS 6.9 mg/dL (2.5-4.9)
--- NOTE | 2016-06-09 19:05 | NUR ---
SHIFT ASSESSMENT COMPLETE, SEE FLOWSHEET FOR DETAILS. PATIENT EXTUBATED HIMSELF TODAY, HAS BEEN STABLE SINCE. PATIENT DENIES PAIN OR NEED. REPOSITIONED FOR COMFORT.
--- NOTE | 2016-06-09 21:00 | NUR ---
PATIENT HAD SMALL SOFT BOWEL MOVEMENT. CLEANED UP AND REPOSITIONED FOR COMFORT.
--- NOTE | 2016-06-09 23:00 | NUR ---
REASSESSMENT COMPLETE. NO ACUTE CHANGES. NEPHROLOGY CALLED FOR INCREASING BP, WANTED CARDIOLOGY'S OPINION. CARDIOLOGY CALLED, ORDERS RECEIVED.
[2016-06-10] VITALS (24 sets, daily range): BP systolic 103–190; BP diastolic 51–104
--- NOTE | 2016-06-10 01:00 | NUR ---
BED BATH GIVEN, LINENS CHANGED. PATIENT TOLERATED WELL.
--- NOTE | 2016-06-10 03:05 | NUR ---
REASSESSMENT COMPLETE. NO ACUTE CHANGES.
[2016-06-10 04:03] LABS: BASOPHILS 0 % (0.0-2.0); EOSINOPHILS 0 % (0-7); HEMATOCRIT 35.7 % (42.0-54.0); IMMATURE GRANULOCYTES 0.5 % (0-5); LYMPHOCYTES 3.8 % (15-50); MCH 32.1 pg (26.0-34.0); MCHC 33.6 g/dL (31.0-37.0); MCV 95.5 fL (80.0-100.0); MEAN PLATELET VOLUME 11.1 fL (7.4-10.4); MONOCYTES 2.1 % (2-11); NEUTROPHILS 93.6 % (40-80); PLATELET COUNT 221 10x3/uL (130-400); RBC 3.74 10x6/uL (4.20-6.10); RDW 16.3 % (11.5-14.5); WBC 20.4 10x3/uL (4.8-10.8)
[2016-06-10 04:21] LABS: ALBUMIN 3.3 g/dL (3.4-5.0); BILIRUBIN - TOTAL 0.98 mg/dL (0.2-1.3); CALCIUM 9.8 mg/dL (8.5-10.1); CARBON DIOXIDE 27.5 mmol/L (21.0-32.0); CREATININE - SERUM 3.7 mg/dL (0.6-1.3); PHOSPHOROUS 5.3 mg/dL (2.5-4.9)
[2016-06-10 04:47] LABS: POTASSIUM - SERUM 2.5 mmol/L (3.5-5.1)
--- NOTE | 2016-06-10 05:10 | NUR ---
K WAS CL WITH A LAB VALUE OF 2.5, RENAL PAGED.
--- NOTE | 2016-06-10 19:00 | NUR ---
RECEIVED PATIENT PATIENT LAYING IN BED WITH EYES CLOSED, PATIENT IS AO X4. EYES PERRLA @ 3MM WITH BRISK RESPONSE, SCLERA IS WHITE. NASAL CANNULA NOTED AT 5L, MUCOSA IS MOIST AND INTACT. S1/S2 SOUNDS NOTED WITH ATRIAL FLUTTER AND IRREGULAR ON TELEMETRY. BREATHING IS SHALLOW AND UNLABORED, CRACKLES NOTED BILATERAL UPPER LOBES WITH DIMINISHED LOWER LOBES. ABDOMEN IS SOFT AND NON-TENDER, BOWEL SOUNDS ACTIVE X4. WALL SECURED IN PLACE BY STATLOCK WITH CONCENTRATED YELLOW URINE NOTED IN COLLECTION BAG. FULL ROM ALL EXTREMITIES, ALL PULSES PALPABLE. 20G IV NOTED R HAND AND R AC, PATENT WITH FLUIDS INFUSING. PATIENT IS L ARM RESERVE WITH FISTULA NOTED, THRILL/BRILL PRESENT. PATIENT TO GO TO CATH IN AM, CONSENTS SIGNED AND CHLORHEX BATH TO BE GIVEN IN AM. PATIENT DENIES PAIN OR OTHER NEEDS AT THIS TIME, WILL CONTINUE TO MONITOR.
--- NOTE | 2016-06-10 21:00 | NUR ---
NO VISITORS AT THIS TIME, PATIENT RESTING IN BED WITH EYES CLOSED. PROVIDED NCTAR THICK WATER AT PATIENT REQUEST, NO DIFFICULTIES NOTED DRINKING. PATIENT DENIES PAIN OR OTHER NEEDS AT THIS TIME, WILL CONTINUE TO MONITOR.
--- NOTE | 2016-06-10 23:00 | NUR ---
REASSESSMENT COMPLETE, PATIENT RESTING IN BED WITH EYES CLOSED. S1/S2 NOTED WITH PATIENT IRREGULAR ON TELEMETRY. BREATHING IS SHALLOW AND UNLABORED WITH CRACKLES NOTED BILATERAL UPPER WITH DIMINISHED LOWER. NON-PRODUCTIVE COUGH THAT IS WEAK AND OCCAISIONAL. PATIENT DENIES PAIN OR OTHER NEEDS AT THIS TIME, WILL CONTINUE TO MONITOR.
[2016-06-11] VITALS (24 sets, daily range): BP systolic 117–170; BP diastolic 58–79
--- NOTE | 2016-06-11 01:25 | NUR ---
PATIENT RESTING IN BED WITH EYES CLOSED ON 2L VIA NC. PATIENT HR IS 67 AND IRREGULAR, POSSIBLE ATRIAL FLUTTER NOTED ON TELEMETRY. EKG PEROFRMED FOR PRE-CATH PROCEDURE. ALL VSS AND WILL CONTINUE TO MONITOR.
--- NOTE | 2016-06-11 02:54 | NUR ---
REASSESSMENT COMPLETE PER FLOW SHEET, PATIENT RESTING IN BED WITH EYES CLOSED. COMPLETE CHLORAHEX BATH/LINEN CHANGE PERFORMED, PATIENT TOLERATED WELL. PATIENT APPEARS TO BE NSR WITH FREQUENT PAC ON TELEMETRY, RHYTHM IS IRREGULAR. BREATHING IS SHALLOW AND UNLABORED WITH OXYGEN SAT 98% ON 2L VIA NC. ALL VSS AND WILL CONTINUE TO MONITOR.
--- NOTE | 2016-06-11 04:30 | NUR ---
AM LABS RESULTED, PATIENT POTASSIUM CRITICALLY LOW. ELECTROLYTE REPLACEMENT INITIATED, 10 MEQ X6 WITH RECHECK AFTER COMPLETION. WILL CONTINUE TO MONITOR.
[2016-06-11 04:32] LABS: BASOPHILS 0.1 % (0.0-2.0); EOSINOPHILS 0.1 % (0-7); HEMATOCRIT 34.6 % (42.0-54.0); HEMOGLOBIN 11.2 g/dL (13.5-17.5); IMMATURE GRANULOCYTES 0.8 % (0-5); LYMPHOCYTES 6.6 % (15-50); MCH 31.5 pg (26.0-34.0); MCHC 32.4 g/dL (31.0-37.0); MCV 97.2 fL (80.0-100.0); MEAN PLATELET VOLUME 10.8 fL (7.4-10.4); MONOCYTES 11.8 % (2-11); NEUTROPHILS 80.6 % (40-80); PLATELET COUNT 238 10x3/uL (130-400); RBC 3.56 10x6/uL (4.20-6.10); RDW 15.8 % (11.5-14.5); WBC 16.7 10x3/uL (4.8-10.8)
[2016-06-11 04:48] LABS: ALBUMIN 2.8 g/dL (3.4-5.0); ANION GAP 13.6 mmol/L (8-16); BILIRUBIN - TOTAL 0.8 mg/dL (0.2-1.3); CALCIUM 9.3 mg/dL (8.5-10.1); CARBON DIOXIDE 29.1 mmol/L (21.0-32.0); CREATININE - SERUM 3.8 mg/dL (0.6-1.3); MAGNESIUM - SERUM 2.4 mg/dL (1.8-2.4); PROTEIN - SERUM 6.7 g/dL (6.4-8.2)
[2016-06-11 04:50] LABS: POTASSIUM - SERUM 2.7 mmol/L (3.5-5.1)
--- NOTE | 2016-06-11 05:58 | NUR ---
STAT POTASSIUM ORDERED PER DR CLEMONS TO CHECK LEVELS AFTER REPLACEMENT, WILL CONTINUE TO MONITOR.
--- NOTE | 2016-06-11 09:18 | NUR ---
NUTRITION MONITORING & EVAL CHART REVIEWED. NURSING REPORTS PT NPO THIS AM FOR POSSIBLE HEART CATH. RD FOLLOWING
--- NOTE | 2016-06-11 10:14 | NUR ---
PT HAS BEEN PRE-OP'ED REQUESTED BY PASSENGER RELATIONS REPRESENTATIVE. DID LET THEM KNOW THAT POTASSIUM LEVEL WAS 2.7 THIS MORNING AND THAT REPLACEMENT WAS IN PROGRESS WHEN WAS FIRST CALLED FOR PREOP. DR ESPANA WAS CONTACTED AND HE HAS CHOSEN TO DO PROCEDURE TODAY. PT HAS HAD 5 OF 6 BAGS OF REPLACEMENT POTASSIUM. 6TH BAG STARTED. RELATIVE ARELI (SISTER IN [employer] WHO WORKS IN MATERIALS DEPT) WAS CONTACTED TO LET HER KNOW THAT PT WOULD BE GOING TODAY.
--- NOTE | 2016-06-11 10:24 | NUR ---
TIME STUDY STATISTICIAN TEAM HERE TO TAKE PT. AB CALLED AND INFORMED PT GOING TO TIME STUDY STATISTICIAN.
--- NOTE | 2016-06-11 10:52 | NUR ---
INVESTMENT DIRECTOR CALLED TO QUESTION MED CODE ONLY. CALLED DR SORIA OFFICE FOR VERIFICATION. SPOKE WITH LINA WHO SAYS YANG CONFIRMS PT IS MED-CODE ONLY.
--- NOTE | 2016-06-11 11:19 | NUR ---
PT RETURNED TO ROOM FROM TANK WAGON OPERATOR.
--- NOTE | 2016-06-11 12:45 | NUR ---
PAGED DR TUCKER TO GIVE RESULTS OF POTASSIUM LEVEL OF 3.4
--- NOTE | 2016-06-11 15:23 | NUR ---
spoke to pt , Zeina Molina. Telephone consent provided for Mr. 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
--- NOTE | 2016-06-11 15:39 | NUR ---
PT HR LOW 50'S AND OCCASSIONALLY 47-48. IS SINUS RHYTHM AND ASYMPTOMATIC. BP 136/60. O2 SATS 98% ON 2L. WILL CONTINUE TO MONITOR.
--- NOTE | 2016-06-11 15:58 | NUR ---
PT HR AT 53. NO DISTRESS NOTED.IN SINUS RHYTHM WITH A FIRST DEGREE BLOCK.
--- NOTE | 2016-06-11 16:35 | NUR ---
PT HR 57. BP 121/61.
--- NOTE | 2016-06-11 19:00 | NUR ---
RECEIVED PATIENT LAYING IN BED AWAKE WITH EYES OPEN WATCHING TV, AO X4. EYES PERRLA @ 3MM WITH BRISK RESPONSE, SCLERA IS WHITE. PATIENT ON 2L VIA NC, ORAL MUCOSA IS MOIST AND INTACT. S1/S2 NOTED WITH PATIENT NSR WITH PAC ON TELEMETRY. BREATHING IS EVEN AND UNLABORED, LUNG SOUNDS ARE CLEAR BILATERAL UPPER WITH DIMINISHED LOWER. ABDOMEN IS SOFT AND NON-TENDER, BOWEL SOUNDS ACTIVE X4. WALL SECURED IN PLACE WITH STATLOCK, CONCENTRATED YELLOW URINE NOTED IN COLLECTION BAG. FULL ROM ALL EXTREMITIES, ALL PULSES PALPABLE. PATIENT GIVEN APPLESAUCE PER REQUEST, NO DIFFICULTIES NOTED. 20G PIV NOTED R AC AND R HAND, PATENT WITH FLUIDS INFUSING. PATIENT IS RESERVE L ARM WITH FISTULA PRESENT, THRILL/BRILL NOTED. PATIENT DENIES PAIN OR OTHER NEEDS AT THIS TIME, BED TABLE/CALL LIGHT IN REACH. WILL CONTINUE TO MONITOR.
--- NOTE | 2016-06-11 21:10 | NUR ---
NO VISITORS AT THIS TIME, PATIENT RESTING IN BED WATCHING TV. MEDICATIONS ADMINISTERED, NO DIFFICULTY NOTED. PATIENT REPOSITIONED FOR COMFORT, ASSISTED WITH ORAL CARE. PATIENT DENIES PAIN OR OTHER NEEDS AT THIS TIME, WILL CONTINUE TO MONITOR.
--- NOTE | 2016-06-11 23:00 | NUR ---
REASSESSMENT COMPLETE, PATIENT RESTING IN BED WITH EYES OPEN WATCHING TV. PATIENT IS AO X4. HEART RATE IS 60 AND IRREGULAR, NSR AND PAC NOTED ON TELEMETRY. BREATHING IS EVEN AND UNLABORED, OXYGEN SAT IS 97% ON 2L VIA NC. PATIENT DENIES PAIN OR OTHER NEEDS AT THIS TIME, ALL VSS. WILL CONTINUE TO MONITOR.
[2016-06-12] VITALS (28 sets, daily range): BP systolic 117–154; BP diastolic 53–70
--- NOTE | 2016-06-12 02:55 | NUR ---
REASSESSMENT COMPLETE PER FLOWSHEET, PATIENT RESTING IN BED WITH EYES CLOSED. PATIENT IN NSR WITH PAC ON TELEMETRY, HR 57. BREATHING IS EVEN AND EFFORTLESS, OXYGEN SAT 98 ON 2L VIA NC. CHLORHEXIDINE BATH AND LINEN CHANGE PERFORMED, PATIENT TOLERATED WELL. PATIENT DENIES PAIN OR OTHER NEEDS AT THIS TIME, ALL VSS. WILL CONTINUE TO MONITOR.
--- NOTE | 2016-06-12 05:00 | NUR ---
PATIENT RESTING IN BED WITH EYES CLOSED, BREATHING IS EVEN AND UNLABORED. PATIENT REPOSITIONED FOR COMFORT, DENIES PAIN OR OTHER NEEDS AT THIS TIME. ALL VSS AND WILL CONTINUE TO MONITOR.
[2016-06-12 05:10] LABS: BASOPHILS 0 % (0.0-2.0); EOSINOPHILS 1.1 % (0-7); HEMOGLOBIN 9.9 g/dL (13.5-17.5); IMMATURE GRANULOCYTES 0.8 % (0-5); LYMPHOCYTES 8.1 % (15-50); MCH 31.3 pg (26.0-34.0); MEAN PLATELET VOLUME 10.5 fL (7.4-10.4); MONOCYTES 12.4 % (2-11); NEUTROPHILS 77.6 % (40-80); RBC 3.16 10x6/uL (4.20-6.10); RDW 15.1 % (11.5-14.5)
[2016-06-12 05:17] LABS: MCV 94.9 fL (80.0-100.0); PLATELET COUNT 186 10x3/uL (130-400); WBC 12.2 10x3/uL (4.8-10.8)
[2016-06-12 05:26] LABS: ANION GAP 15.2 mmol/L (8-16); CALCIUM 8.5 mg/dL (8.5-10.1); CARBON DIOXIDE 25.1 mmol/L (21.0-32.0); CREATININE - SERUM 3.8 mg/dL (0.6-1.3); MAGNESIUM - SERUM 2.4 mg/dL (1.8-2.4); PHOSPHOROUS 5.9 mg/dL (2.5-4.9); POTASSIUM - SERUM 3.3 mmol/L (3.5-5.1)
--- NOTE | 2016-06-12 07:51 | NUR ---
0800- PT AWAKE AND ORIENTED, DENIES PAIN, ASSESSMENT COMPLETE,VSS, AFEBRILE. NPO FOR ROLL UP GUIDER OPERATOR TODAY.
--- NOTE | 2016-06-12 11:23 | NUR ---
Is the patient Alert and Oriented? Yes 0 * How many steps to enter\exit or inside your home? 5 0 * PCP DR. SORIA 0 * Pharmacy [facility] 0 * Preadmission Environment Home with Family 0 * ADLs Independent 0 * Equipment None 0 * List name and contact numbers for known caregivers / representatives who currently or will assist patient after discharge: SPOUSE: AB [phone] 0 * Community resources currently utilized None 0 * Additional services required to return to the preadmission environment? No 0 * Can the patient safely return to the preadmission environment? Yes 0 * Has this patient been hospitalized within the prior 30 days at any hospital? No PATIENT STATES HE LIVES AT HOME WITH HIS . HE STATES EITHER HIS OR OTHER FAMILY WILL BE AVAILABLE TO DRIVE HIM HOME AT DISCHARGE. HIS PCP IS DR. SORIA. HE GETS HIS MEDICATIONS FROM [facility]. PATIENT DENIES USE OF ANY EQUIPMENT. HE DENIES EVER HAVING HOME HEALTH CARE. PATIENT STATES THERE ARE 5 STEPS TO ENTER HIS HOME. PATIENT MAY BENEFIT FROM HOME HEALTH IF NEEDED AT DISCHARGE.
--- NOTE | 2016-06-12 15:16 | NUR ---
1516-PT TO SEASONING MIXER.
--- NOTE | 2016-06-12 16:20 | NUR ---
1610-PT BACK TO ICU, ALL MONITORING EQUIPMENT ATTACHED, ALARMS SET. L GROIN DSNG CDI, SLIGHT BULDGE TO SITE, FEM STOP SET TO 115MMHG. PPP, PT RESTING COMFORTABLY, VSS, AFEBRILE. SB 54 ON CM.
--- NOTE | 2016-06-12 19:00 | NUR ---
RECEIVED PATIENT AWAKE AND ALERT IN BED WATCHING TV, ASSESSMENT COMPLETE PER FLOWSHEET. PATIENT IS AO X4, MOOD IS PLEASANT. EYES PERRLA 2 4MM WITH BRISK RESPONSE, SCLERA IS WHITE. PATIENT ON 2L VIA NC WITH OXYGEN SAT 97%. S1/S2 NOTED WITH PATIENT NSR AND BRADYCARDIC ON TELEMETRY, HR 58. BREATHING IS EVEN AND UNLABORED, LUNG SOUNDS ARE CLEAR BILATERAL UPPER WITH DIMINISHED LOWER. ABDOMEN IS SOFT AND NON-TENDER, BOWEL SOUNDS ACTIVE X4. BILATERAL DRESSING CDI ON GROIN AREA FROM CATH PROCEDURES, NO ERYTHEMA OR SWELLING NOTED. 16FR WALL SECURED BY STATLOCK, CLEAR YELLOW URINE NOTED IN COLLECTION BAG. FULL ROM ALL EXTREMITIES WITH ALL PULSES PALPABLE, SLIGHT WEAKNESS NOTED WITH SHEET METAL JOURNEYMAN/PEDAL. 20G IV X2 IN R AC, DIFFICULTY FLUSHING AND NO RETURN. 20G IV R HAND, PATENT WITH FLUIDS INFUSING. PATIENT DENIES PAIN OR OTHER NEEDS AT THIS TIME, BED TABLE AND CALL LIGHT IN REACH. ALL VSS AND WILL CONTINUE TO MONITOR.
--- NOTE | 2016-06-12 23:00 | NUR ---
REASSESSMENT COMPLETE PER FLOWSHEET, PATIENT RESTING IN BED WITH EYES CLOSED. S1/S2 NOTED WITH PATIENT BRADYCARDIC ON TELEMETRY, HR IS 44. B/P IS STABLE AND WITHIN EXPECTED RANGE, CARDIOLOGY ALREADY AWARE PER DOREEN RN. BREATHING IS EVEN AND EFFORTLESS, LUNG SOUNDS CLEAR BILATERAL UPPER WITH SLIGHTLY DIMINISHED LOWER. NO SWELLING OR ERYTHEMA NOTED AT CATH SITES, TRANSPARENT DRESSING CDI. PATIENT DENIES PAIN OR OTHER NEEDS AT THIS TIME, WILL CONTINUE TO MONITOR.
[2016-06-13] VITALS (24 sets, daily range): BP systolic 110–153; BP diastolic 32–74
--- NOTE | 2016-06-13 01:00 | NUR ---
PATIENT RESTING IN BED WITH EYES OPEN WATCHING TV, BREATHING IS EVEN AND EFFORTLESS. PATIENT REPOSITIONED FOR COMFORT, DENIES PAIN OR OTHER NEEDS AT THIS TIME. WILL CONTINUE TO MONITOR.
[2016-06-13] MEDS ORDERED: HYDROCODONE-APA1 TAB PO (01:05)
[2016-06-13] MEDS ORDERED: ULORIC80 MG PO (01:06)
[2016-06-13] MEDS ORDERED: COZAAR100 MG PO (01:06)
[2016-06-13] MEDS ORDERED: NOVOLIN N100 U/ML SQ (01:07)
[2016-06-13] MEDS ORDERED: PROAIR HFA8.5 GM INH (01:09)
[2016-06-13] MEDS ORDERED: ISOSORBIDE DINI20 MG PO (01:10)
[2016-06-13] MEDS ORDERED: NIFEDICAL30 MG/BOTT PO ×2 (01:11→01:13)
[2016-06-13] MEDS ORDERED: COLCRYS0.6 MG PO (01:11)
[2016-06-13] MEDS ORDERED: FUROSEMIDE40 MG PO (01:12)
[2016-06-13] MEDS ORDERED: POTASSIUM CL ER 10 M PO (01:13)
--- NOTE | 2016-06-13 03:00 | NUR ---
REASSESSMENT COMPLETE PER FLOWSHEET, PATIENT AWAKE IN BED WATCHING TV. PATIENT STATES HUNGRY AND REQUESTED JELLO, NO DIFFICULTIES SWALLOWING. S1/S2 NOTED WITH PATIENT SINUS BRADYCARDIA ON TELEMETRY, HR 47. B/P 133/58 MAP 91, NO SIGNS OF DISTRESS. BREATHING IS EVEN AND UNLABORED, OXYGEN SAT IS 97% ON 2L VIA NC. CATH SITES COVERED WITH TRANSPARENT DRESSING, NO ERYTHEMA OR SWELLING NOTED. PATIENT DENIES PAIN OR OTHER NEEDS AT THIS TIME, WILL CONTINUE TO MONITOR.
[2016-06-13 05:00] LABS: BASOPHILS 0 % (0.0-2.0); EOSINOPHILS 0.8 % (0-7); HEMATOCRIT 27.4 % (42.0-54.0); HEMOGLOBIN 8.9 g/dL (13.5-17.5); IMMATURE GRANULOCYTES 0.9 % (0-5); LYMPHOCYTES 11.7 % (15-50); MCH 30.8 pg (26.0-34.0); MCHC 32.5 g/dL (31.0-37.0); MCV 94.8 fL (80.0-100.0); MEAN PLATELET VOLUME 10.8 fL (7.4-10.4); MONOCYTES 4.2 % (2-11); NEUTROPHILS 82.4 % (40-80); PLATELET COUNT 161 10x3/uL (130-400); RBC 2.89 10x6/uL (4.20-6.10); RDW 15.2 % (11.5-14.5); WBC 10.9 10x3/uL (4.8-10.8)
[2016-06-13 05:05] LABS: ANION GAP 14.9 mmol/L (8-16); CALCIUM 7.9 mg/dL (8.5-10.1); CARBON DIOXIDE 22.4 mmol/L (21.0-32.0); CREATININE - SERUM 3.8 mg/dL (0.6-1.3); MAGNESIUM - SERUM 2.4 mg/dL (1.8-2.4); PHOSPHOROUS 5.3 mg/dL (2.5-4.9)
[2016-06-13 05:06] LABS: POTASSIUM - SERUM 3.3 mmol/L (3.5-5.1)
--- NOTE | 2016-06-13 05:39 | NUR ---
PATIENT K+ 3.3, 40 MEQ K+ GIVEN PO PER PROTOCOL. PATIENT TOLERATED WELL, NO DIFFICULTIES NOTED. REPOSITIONED FOR COMFORT, ALL VSS. WILL CONTINUE TO MONITOR.
--- NOTE | 2016-06-13 07:05 | NUR ---
F/C REMOVED PER ORDERS. CATHETER INTACT. NO DISTRESS NOTED UPON REMOVAL.
--- NOTE | 2016-06-13 07:15 | NUR ---
REPORT RECIEVED FROM PIZZA DELIVERY NURSE. PT RESTING IN BED QUIETLY. NO S/SX OF ACUTE DISTRESS NOTED AT THIS TIME. CALL LIGHT IN REACH. BED IN LOW POSITION. ASSESSMENT COMPLETE PER FLOWSHEET. WILL CONTINUE TO ASSESS FOR CHANGES THROUGHOUT SHIFT.
--- NOTE | 2016-06-13 09:00 | NUR ---
ASSISTED TO CHAIR WITH HELP OF PT. MODERATE ASSIST REQUIRED. PT STATES HE WAS NOT USING AN ASSISTIVE DEVIVE PRIOR TO ADMISSION. PT WILL CONT TO FOLLOW.
--- NOTE | 2016-06-13 09:16 | NUR ---
NUTRITION MONITORING & EVAL CHART REVIEWED. PT UP IN CHAIR EATING BREAKFAST. MECH SOFT DIET. RD FOLLOWING
--- NOTE | 2016-06-13 11:00 | NUR ---
REMAINS IN CHAIR. DENIES NEEDS AT THIS TIME. WILL CONTINUE TO ASSESS.
--- NOTE | 2016-06-13 12:00 | NUR ---
PT REMAINS IN CHAIR. REFUSED BREAKFAST. STATED HE WAS STILL FULL FROM BREAKFAST. FRESH ICE WATER PLACED ON BEDSIDE TABLE. CALL LIGHT IN REACH. DENIES FURTHER NEEDS. WILL CONTINUE TO ASSESS.
--- NOTE | 2016-06-13 14:00 | NUR ---
ASSISTED TO BSC. HAD ONE BM AND URINATED 150CC OF CLEAR YELLOW URINE. ASSISTED BACK TO CHAIR WITH THE ASSIST OF NURSE. WILL CONTINUE TO ASSESS.
--- NOTE | 2016-06-13 17:00 | NUR ---
DINNER TRAY PLACED ON BEDSIDE TABLE. PT ABLE TO FEED SELF. DENIES NEEDS AT THIS TIME. CALL LIGHT IN REACH. WILL CONTINUE TO ASSESS.
--- NOTE | 2016-06-13 18:00 | NUR ---
FAMILY AT BEDSIDE. UPDATE PROVIDED.
--- NOTE | 2016-06-13 19:00 | NUR ---
REPORT RECEIVED AND ASSESSMENT COMPLETED. PT UP IN CHAIR WATCHING TV. VSS. SEE ASSESSMENT FOR FULL DETAILS. PT IS VERY BRADYCARDIC HR CONSISTENTLY LOW 40'S. WILL CONTINUE TO MONITOR.
--- NOTE | 2016-06-13 21:30 | NUR ---
NO VISITORS AT THIS TIME, NO NEEDS NOTED, WILL CON'T TO MONITOR
--- NOTE | 2016-06-13 23:00 | NUR ---
REASSESSMENT COMPLETED. SEE ASSESSMENT FOR FULL DETAILS. NO CHANGES IN STATUS AT THIS TIME. PT STILL VERY BRADYCARDIC. HR CAN DIP INTO THE UPPER 30'S WHEN HE FALLS ASLEEP. WILL CONTINUE TO MONITOR.
[2016-06-14] VITALS (10 sets, daily range): BP systolic 118–163; BP diastolic 49–71
--- NOTE | 2016-06-14 01:30 | NUR ---
PT RESTING COMFORTABLY AT THIS TIME, NO NEEDS NOTED, WILL CON'T TO MONITOR
--- NOTE | 2016-06-14 03:00 | NUR ---
REASSESSMENT COMPLETED. NO CHANGES IN STATUS AT THIS TIME. WILL CONTINUE TO MONITOR.
[2016-06-14 04:44] LABS: BASOPHILS 0 % (0.0-2.0); EOSINOPHILS 1.3 % (0-7); HEMATOCRIT 27.5 % (42.0-54.0); HEMOGLOBIN 9.2 g/dL (13.5-17.5); IMMATURE GRANULOCYTES 1.7 % (0-5); LYMPHOCYTES 7.3 % (15-50); MCH 31.4 pg (26.0-34.0); MCHC 33.5 g/dL (31.0-37.0); MCV 93.9 fL (80.0-100.0); MEAN PLATELET VOLUME 10.7 fL (7.4-10.4); MONOCYTES 10.2 % (2-11); NEUTROPHILS 79.5 % (40-80); PLATELET COUNT 154 10x3/uL (130-400); RBC 2.93 10x6/uL (4.20-6.10); RDW 15.1 % (11.5-14.5)
--- NOTE | 2016-06-14 05:00 | NUR ---
NO NEEDS NOTED AT THIS TIME, PT RESTING COMFORTABLY, VSS, CALL LIGHT IN REACH
[2016-06-14 05:03] LABS: ANION GAP 13.8 mmol/L (8-16); CALCIUM 8.3 mg/dL (8.5-10.1); CREATININE - SERUM 3.6 mg/dL (0.6-1.3); MAGNESIUM - SERUM 2.6 mg/dL (1.8-2.4); PHOSPHOROUS 4.1 mg/dL (2.5-4.9); POTASSIUM - SERUM 3.8 mmol/L (3.5-5.1)
--- NOTE | 2016-06-14 06:00 | NUR ---
UPDATE GIVEN TO OVER PHONE, PASSWORD GIVEN
--- NOTE | 2016-06-14 06:05 | NUR ---
DR. CLEMONS AT BEDSIDE, UPDATE GIVEN, NEW ORDERS RECIEVED,
--- NOTE | 2016-06-14 07:15 | NUR ---
REPORT RECIEVED FROM SPINNING FRAME CHANGER NURSE. PT RESTING IN BED QUIETLY. NO S/SX OF ACUTE DISTRESS NOTED AT THIS TIME. PT ASSISTED TO CHAIR WITH HELP OF SPINNING FRAME CHANGER NURSE. DENIES NEEDS AT THIS TIME. CALL LIGHT PLACED IN REACH. WILL CONTINUE TO ASSESS.
--- NOTE | 2016-06-14 10:00 | NUR ---
PT ATE 50% OF MEALS. MORNING MEDICATIONS TAKEN PER ORDERS. PT DENIES NEEDS AT THIS TIME. WILL CONTINUE TO ASSESS.
--- NOTE | 2016-06-14 11:45 | NUR ---
DR. ESPANA IN ICU. VERBALIZED THAT PT HAS REMAINED BRADYCARDIC. ALSO VERBALIZED THAT BETAPACE WAS D/C PER DR. SORIA. DR. ESPANA STATED THAT WAS OKAY AND THAT HE COULD GO TO THE FLOOR ONCE THERE WAS AN AVAILABLE BED.
--- NOTE | 2016-06-14 12:00 | NUR ---
FAMILY AT BEDSIDE.
--- NOTE | 2016-06-14 14:00 | NUR ---
REQUESTED APPLE SAUCE. FRESH ICE WATER TAKEN WELL. DENIES FURTHER NEEDS. WILL CONTINUE TO ASSESS.
--- NOTE | 2016-06-14 15:40 | NUR ---
REPORT CALLED TO TEDDY NOLAND.
--- NOTE | 2016-06-14 16:10 | NUR ---
TRANSFER FROM ICU BY W/C. OREINTED TO ROOM. CALL LIGHT IN REACH. WILL CONT. PLAN OF CARE.
--- NOTE | 2016-06-14 19:25 | NUR ---
RESUMED CARE OF PT, LYING IN BED RESPIRATIONS EVEN AND UNLABORED ON 2LPM VIA NC. 55 SB ON TELEMETRY. RIGHT HAND SALINE LOCKED. CALL LIGHT IN REACH. WILL CONTINUE TO MONITOR. SEE NURSE ASSESSMENT.
[2016-06-15 02:50] VITALS: BP 140/60
--- NOTE | 2016-06-15 05:00 | NUR ---
CALL LIGHT IN REACH, WILL CONTINUE WITH PLAN OF CARE.
[2016-06-15 05:22] VITALS: BP 138/62
[2016-06-15 05:35] LABS: BASOPHILS 0.1 % (0.0-2.0); EOSINOPHILS 2.3 % (0-7); HEMATOCRIT 26.2 % (42.0-54.0); HEMOGLOBIN 8.6 g/dL (13.5-17.5); IMMATURE GRANULOCYTES 3.5 % (0-5); MCH 31.3 pg (26.0-34.0); MCHC 32.8 g/dL (31.0-37.0); MCV 95.3 fL (80.0-100.0); MEAN PLATELET VOLUME 11.4 fL (7.4-10.4); MONOCYTES 10.8 % (2-11); NEUTROPHILS 72.3 % (40-80); PLATELET COUNT 150 10x3/uL (130-400); RBC 2.75 10x6/uL (4.20-6.10); RDW 15.3 % (11.5-14.5); WBC 8.6 10x3/uL (4.8-10.8)
[2016-06-15 05:47] LABS: ANION GAP 14.1 mmol/L (8-16); CALCIUM 8.5 mg/dL (8.5-10.1); CARBON DIOXIDE 21.8 mmol/L (21.0-32.0); CREATININE - SERUM 3.1 mg/dL (0.6-1.3); MAGNESIUM - SERUM 2.8 mg/dL (1.8-2.4); PHOSPHOROUS 4.2 mg/dL (2.5-4.9); POTASSIUM - SERUM 3.9 mmol/L (3.5-5.1)
[2016-06-15 08:00] VITALS: BP 156/55
--- NOTE | 2016-06-15 09:07 | NUR ---
TELEMETRY SB. HR 50. RESP UL ON 02 2L NC. CALL LIGHT IN REACH. WILL CONT. PLAN OF CARE.
--- NOTE | 2016-06-15 09:32 | NUR ---
UP TO SHOWER WITH UROLOGY NURSE ASSIST.
--- NOTE | 2016-06-15 10:02 | NUR ---
UP TO AMBULATE WITH PT ASSIST. FAMILY AT BS.
--- NOTE | 2016-06-15 11:11 | OP ---
PATIENT NAME: BIMAL PALOMINO MEDICAL RECORD: [id number] :48 LOCATION:D.M2 D.2114 ADMISSION DATE:06/06/16 SURGEON: SABI ESPANA MD DATE OF OPERATION: 06/12/2016 PROCEDURES: 1. PTCA stent LAD. 2. Selective coronary angiography. 3. Intravascular ultrasound of the LAD. INDICATION: Coronary artery disease, status post cardiopulmonary arrest. PROCEDURE IN DETAIL: After informed consent was obtained and after detailed explanation of risks, benefits as well as alternative therapies, the patient elected to proceed with angiogram and angioplasty. The left femoral artery was prepped and draped in normal sterile fashion. The left femoral artery was cannulated via modified Seldinger technique with placement of a 6-Marshallese sheath. All catheters exchanged through this sheath. FINDINGS: The left anterior descending has greater than 75% stenosis confirmed by intravascular ultrasound, this is stent with a 3.5 x 22 mm Integrity. Result was 0% residual stenosis. OVERALL IMPRESSION: Successful percutaneous transluminal coronary angioplasty stent of the left anterior descending going from 75% initial stenosis to 0% residual. TRANSINT:[id number] Voice Confirmation ID: [id number] DOCUMENT ID: [id number] SABI ESPANA MD at 1111 CC: [id number] DICTATION DATE: 06/12/16 1554 PILE DRIVER: 06/12/16 1603 ADM IN [facility] [address] [place] [address]
--- NOTE | 2016-06-15 11:11 | OP ---
PATIENT NAME: BIMAL PALOMINO MEDICAL RECORD: [id number] :48 LOCATION:D.M2 D.2114 ADMISSION DATE:06/06/16 SURGEON: SABI ESPANA MD DATE OF OPERATION: 06/11/2016 PROCEDURES: 1. PTCA, stent RCA. 2. Selective coronary angiography. 3. Left heart catheterization. 4. Left ventriculogram. INDICATION: Status post cardiopulmonary arrest, coronary artery disease. PROCEDURE IN DETAIL: After informed consent was obtained and after detailed explanation of risks, benefits as well as alternative therapies, the patient elected to proceed with angiogram and angioplasty. The right femoral area is prepped and draped in normal sterile fashion. The right femoral artery was cannulated via modified Seldinger technique with placement of 7-Zimbabwean sheath. All catheters exchanged through this sheath. FINDINGS: The left ventriculogram was performed in standard 30-degree MERINO view, reveals preserved cardiac wall motion, ejection fraction 50%. SELECTIVE CORONARY ANGIOGRAPHY: 1. Left main showed no significant angiographic disease. 2. Left anterior descending has the least 70% stenosis in the proximal vessel. 3. Left circumflex has moderate irregularities, but no flow-limiting stenosis. 4. Right coronary artery has a 90% to 95% stenosis in the mid vessel. PERCUTANEOUS TRANSLUMINAL CORONARY ANGIOPLASTY STENT OF THE RIGHT CORONARY ARTERY: Stent used was 3.5 x 26 mm Integrity. Result was 0% residual stenosis. OVERALL IMPRESSION: Successful percutaneous transluminal coronary angioplasty stent of the right coronary artery going from 95% initial stenosis to 0% residual. TRANSINT:[id number] Voice Confirmation ID: [id number] DOCUMENT ID: [id number] SABI ESPANA MD at 1111 CC: [id number] DICTATION DATE: 06/11/16 1109 BOOM MASTER: 06/11/16 1232 [place] [address]
--- NOTE | 2016-06-15 11:11 | HP ---
PATIENT: BIMAL MOLINA MEDICAL RECORD: [id number] ACCOUNT: [id number] LOCATION:[address] : 48 ADMISSION DATE: 06/06/16 HISTORY AND PHYSICAL EXAMINATION DATE OF HISTORY AND PHYSICAL: 06/12/2016 ADMITTING DIAGNOSES: 1. Angina. 2. Coronary artery disease. 3. Recent percutaneous transluminal coronary angioplasty stent of the right coronary artery with concomitant disease of the left anterior descending. 4. Hypertension. 5. Hyperlipidemia. HISTORY OF PRESENT ILLNESS: Mr. Molina presents with anginal symptomatology, found to have 2-vessel coronary artery disease of the RCA and LAD, underwent successful PTCA stent of the RCA, now brought back for PTCA stent of the LAD in a staged fashion. PHYSICAL EXAMINATION: GENERAL APPEARANCE: Well-nourished, well-developed, appears stated age. Level of distress, comfortable. PSYCHIATRIC: Mental status, alert, normal affect. Orientation, oriented to time, place and person. EYES: Lids and conjunctiva, noninjected. No discharge, no pallor. ENT: Lips, teeth, gums, normal dentition. Oropharynx, no cyanosis, no pallor. NECK: Carotid arteries, bilateral normal upstroke, no bruits, no thrills. JUGULAR VEINS: No jugular venous pressure or distention. CERVICAL LYMPH NODES: Nontender, nonenlarged. THYROID: Not enlarged. Nontender. No nodules. LUNGS: Respiratory effort, unlabored. CHEST: Normal curvature. No thoracic deformity. No chest wall tenderness. Percussion, resonant. Auscultation, clear. No wheezes, no rales, no rhonchi. CARDIOVASCULAR: Precordial exam, nondisplaced. No heaves or pericardial thrills. Rate and rhythm, regular. Heart sounds, normal S1, normal S2. No S3, no gallop, no rub. Systolic murmur, not heard. Diastolic murmur, not heard. EXTREMITIES: No cyanosis, no edema. Peripheral pulses, full and equal in all extremities, except as noted. No bruits appreciated. ABDOMEN: Soft, nondistended. Normal aorta. No bruit. Nontender. No masses. Liver, nontender, no hepatomegaly. Spleen, nontender, no splenomegaly. MUSCULOSKELETAL: No joint tenderness. No joint swelling. No erythema. NEUROLOGICAL: Normal gait, normal strength, normal tone. SKIN: Warm and dry. REVIEW OF SYSTEMS: The patient reports easy bruising but reports no swollen glands. The patient reports no fever, no night sweats, no significant weight gain, no significant weight loss. No significant exercise tolerance. The patient reports no dry eyes, no irritation, no vision change. Patient reports no difficulty hearing and no ear pain. Patient reports no frequent nose bleeds or nose and sinus problems. Patient reports on arm pain on exertion. No shortness of breath while lying down. No history of heart murmur. Patient reports no cough, no wheezing or coughing up blood. Patient reports no abdominal pain, no vomiting. Normal appetite. No diarrhea and not vomiting blood. No nausea and no constipation. Patient reports no incontinence. No HISTORY AND PHYSICAL [id number] HAGLE,BIMAL difficulty urinating. No hematuria. No increased frequency. Patient reports no muscle aches. No weakness, no arthralgias, no back pain. No swelling of the extremities. Patient reports no abnormal mole, no jaundice, no rashes. Reports no loss of consciousness. No weakness and no numbness. No seizures, dizziness, or headaches. The patient reports no depression, no sleep disturbance, feeling safe in a relationship and no alcohol abuse. Patient reports on fatigue. Reports no runny nose or sinus pressure. No itching, no hives, and no frequent sneezing. OVERALL IMPRESSION: Anginal symptomatology with significant disease of the left anterior descending. We will proceed with percutaneous transluminal coronary angioplasty, stent of the left anterior descending. TRANSINT:[id number] Voice Confirmation ID: [id number] DOCUMENT ID: [id number] SABI ESPANA MD at 1111 CC: [id number] DICTATION DATE: 06/12/16 1024 PLACER MINER: 06/12/16 1035 ADM IN [facility] [address] [place] [address]
[2016-06-15 12:00] VITALS: BP 153/59
--- NOTE | 2016-06-15 13:58 | NUR ---
Nutrition Follow Up: Pt reported that his appetite was "okay." He refused supplements at this time. RD encouraged po intake. Diet: Diabetic Mech Soft with thin liquids PO Intake: 25% (9 meal avg) I>O +BM 06/13/16 Wt gain of 16# since admit? Labs noted - Na, BUN, Cr, Glucose elevated Meds: Humulin, Prednisone, Folic Acid Pt with poor po intake at this time - not meeting est nutritional needs. Rec continue current diet per EQUINE MANAGER recs. Will continue to provide selective menus and honor food preferences. Pt may benefit from an appetite stimulant. RD following.
[2016-06-15 16:02] VITALS: BP 141/60
--- NOTE | 2016-06-15 16:19 | NUR ---
AMBULATES HALLWAY WITH EDITOR INDEX ASSIST.
[2016-06-15 20:35] VITALS: BP 179/72
[2016-06-16 00:45] VITALS: BP 127/79
--- NOTE | 2016-06-16 02:04 | NUR ---
PT RESTING WELL WITHOUT C/O OR DISTRESS NOTED. NO NEEDS VOICED. CALL LIGHT WITHIN REACH. WILL CONT TO MONITOR.
[2016-06-16 04:20] VITALS: BP 191/72
[2016-06-16 05:14] LABS: BASOPHILS 0.1 % (0.0-2.0); EOSINOPHILS 2.9 % (0-7); HEMATOCRIT 29.6 % (42.0-54.0); HEMOGLOBIN 9.7 g/dL (13.5-17.5); IMMATURE GRANULOCYTES 5.3 % (0-5); LYMPHOCYTES 8.9 % (15-50); MCH 31.2 pg (26.0-34.0); MCHC 32.8 g/dL (31.0-37.0); MCV 95.2 fL (80.0-100.0); MEAN PLATELET VOLUME 11.1 fL (7.4-10.4); MONOCYTES 9.8 % (2-11); RBC 3.11 10x6/uL (4.20-6.10); RDW 15.6 % (11.5-14.5)
[2016-06-16 05:24] LABS: PLATELET COUNT 200 10x3/uL (130-400); WBC 12.7 10x3/uL (4.8-10.8)
[2016-06-16 05:28] LABS: ANION GAP 15.9 mmol/L (8-16); CALCIUM 8.8 mg/dL (8.5-10.1); CARBON DIOXIDE 21.3 mmol/L (21.0-32.0); CREATININE - SERUM 2.7 mg/dL (0.6-1.3); MAGNESIUM - SERUM 2.7 mg/dL (1.8-2.4); PHOSPHOROUS 3.4 mg/dL (2.5-4.9); POTASSIUM - SERUM 4.2 mmol/L (3.5-5.1)
--- NOTE | 2016-06-16 07:39 | NUR ---
ASSESSMENT COMPLETED. TELEMERTY SHOWS SB WITH A RATE OF 53. LEFT AVF NOT USED. DENIES ANY NEEDS. CALL LIGHT IN REACH WITH SR UP. WILL MONITOR
[2016-06-16 08:40] VITALS: BP 145/52
[2016-06-16 12:03] VITALS: BP 152/57
--- NOTE | 2016-06-16 14:11 | NUR ---
Rehab Prescreening Consult recieved and the chart was reviewed. The PT notes indicate he is up ad karen, ambulates without device and they have signed off on him. Medicare criteria requires a patient have the need for a minimum of 2 therapies PT, ST or OT. At this time he is to high level to qualify for acute inpatient rehab. Thank you for the referral. Helena Cancino RN [id number] Liaison, Rehab
--- NOTE | 2016-06-16 14:23 | NUR ---
LYING QUIETLY. DENIES ANY NEEDS. TELEMERTY SHOWS SR. WILL MONITOR
[2016-06-16 14:47] VITALS: BP 158/64
--- NOTE | 2016-06-16 15:00 | NUR ---
PT LAYING ON LEFT SIDE SLEEPING NO S/S DISTRESS WILL CONTINUE TO MONITOR
--- NOTE | 2016-06-16 18:05 | NUR ---
LYING QUIETLY HOB UP. DENIES ANY NEEDS. TELEMERTY SHOWS SB. WILL MONITOR. AT BEDSIDE
[2016-06-16 20:10] VITALS: BP 188/55
[2016-06-17 00:35] VITALS: BP 173/65
--- NOTE | 2016-06-17 02:00 | NUR ---
PT RESTING WELL WITHOUT C/O OR DISTRESS NOTED. NO NEEDS VOICED. CALL LIGHT WITHIN REACH. WILL CONT TO MONITOR.
[2016-06-17 04:28] VITALS: BP 171/58
[2016-06-17 06:15] LABS: BASOPHILS 0.1 % (0.0-2.0); HEMATOCRIT 28.6 % (42.0-54.0); HEMOGLOBIN 9.1 g/dL (13.5-17.5); IMMATURE GRANULOCYTES 4.1 % (0-5); LYMPHOCYTES 7.5 % (15-50); MCH 30.2 pg (26.0-34.0); MCHC 31.8 g/dL (31.0-37.0); MEAN PLATELET VOLUME 11.2 fL (7.4-10.4); MONOCYTES 11.2 % (2-11); NEUTROPHILS 75.1 % (40-80); PLATELET COUNT 227 10x3/uL (130-400); RBC 3.01 10x6/uL (4.20-6.10); RDW 15.9 % (11.5-14.5); WBC 11.3 10x3/uL (4.8-10.8)
[2016-06-17 06:19] LABS: CALCIUM 8.9 mg/dL (8.5-10.1); CARBON DIOXIDE 20.7 mmol/L (21.0-32.0); CREATININE - SERUM 2.6 mg/dL (0.6-1.3); POTASSIUM - SERUM 4.7 mmol/L (3.5-5.1)
--- NOTE | 2016-06-17 07:15 | NUR ---
ASSESSMENT COMPLETED. DENIES ANY NEEDS.TELEMERTY SHOWS SRWITH A RATE OF 67. LEFT AVF NOT IN USE. SR UP WITH CALL LIGHT IN REACH
[2016-06-17 08:07] VITALS: BP 198/68
--- NOTE | 2016-06-17 09:18 | NUR ---
RESTS IN BED WITH CALL LIGHT IN REACH. ALDAIR NEEDS AT THIS TIME. WILL MONITOR.
--- NOTE | 2016-06-17 09:57 | NUR ---
LYING QUIETLY. EYES CLOSED, NO DISTRESS NOTED. WILL MONITOR
--- NOTE | 2016-06-17 12:11 | NUR ---
UP IN BEDSIDE CHAIR FOR DIET. DENIES ANY NEEDS. TELEMERTY SHOWS SR. WILL MONITOR
[2016-06-17 12:19] VITALS: BP 172/64
[2016-06-17 16:33] VITALS: BP 184/76
[2016-06-17 20:00] VITALS: BP 141/54
--- NOTE | 2016-06-17 21:41 | NUR ---
INITIAL ROUNDS COMPLETED AT 1914 HRS. PT DENIED ANY DISCOMFORT. ASSESSMENT COMPLETED AT 1954 HRS. VSS. SR PER CM HR 70. IV TO R HAND SL. LAVF WITH GOOD BRUIT AND THRILL LUNGS DIMINISHED IN BASES BILAT. UP AD HENNY. PM MEDS GIVEN. PT CURENTLY RESTING WITH EYES CLOSED. RESP EVEN AND REGULAR. SR UP X2, CALL LIGHT WITHIN REACH.
--- NOTE | 2016-06-18 00:14 | NUR ---
PT RESTING WITH EYES CLOSED. RESP EVEN AND REGULAR. SR UP X2, CALL LIGHT WITHIN REACH.
[2016-06-18 00:33] VITALS: BP 169/65
--- NOTE | 2016-06-18 03:02 | NUR ---
PT RESTING WITH EYES CLOSED. RESP EVEN AND REGULAR. SR UP X2, CALL LIGHT WITHIN REACH.
--- NOTE | 2016-06-18 04:46 | NUR ---
A-FLUTER PER CM HR 78. HX OF FLUTTER IN ICU. ASYMPTOMATIC. WILL CONITNUE TO MONITOR.
[2016-06-18 05:01] LABS: BASOPHILS 0.1 % (0.0-2.0); HEMATOCRIT 27.5 % (42.0-54.0); HEMOGLOBIN 8.9 g/dL (13.5-17.5); IMMATURE GRANULOCYTES 3.8 % (0-5); LYMPHOCYTES 8.9 % (15-50); MCH 30.8 pg (26.0-34.0); MCHC 32.4 g/dL (31.0-37.0); MCV 95.2 fL (80.0-100.0); MEAN PLATELET VOLUME 10.9 fL (7.4-10.4); MONOCYTES 9.5 % (2-11); NEUTROPHILS 75.7 % (40-80); PLATELET COUNT 235 10x3/uL (130-400); RBC 2.89 10x6/uL (4.20-6.10); RDW 15.9 % (11.5-14.5)
[2016-06-18 05:16] LABS: ANION GAP 16.7 mmol/L (8-16); CALCIUM 8.7 mg/dL (8.5-10.1); CARBON DIOXIDE 20.9 mmol/L (21.0-32.0); CREATININE - SERUM 2.6 mg/dL (0.6-1.3); MAGNESIUM - SERUM 2.3 mg/dL (1.8-2.4); PHOSPHOROUS 2.7 mg/dL (2.5-4.9); POTASSIUM - SERUM 4.6 mmol/L (3.5-5.1)
[2016-06-18 05:19] VITALS: BP 170/62
--- NOTE | 2016-06-18 06:50 | NUR ---
AM FSBS 101. VSS THROUGHOUT NIGHT. A-FLUTTER THIS AM. DR SWENSON AWARE. NEEDS MET; WILL CONTINUE TO MONITOR.
--- NOTE | 2016-06-18 07:15 | NUR ---
ASSESSMENT DONE. DENIES NEEDS.
[2016-06-18 09:29] VITALS: BP 129/63
--- NOTE | 2016-06-18 09:58 | NUR ---
UP IN CHAIR. CALL LIGHT IN REACH. FAMILY AT BS. WILL CONT. PLAN OF CARE.
--- NOTE | 2016-06-18 15:54 | NUR ---
Patient Name: BIMAL PALOMINO Encounter No: [id number] : 1950 Primary Insurance: MEDICARE A & B Anticipated DC Date: 06-18-2016 Planned Disposition: Home WITH HOME HEALTH External Planned Provider: [facility] DCP follow-up note: CM MET WITH PT TO DISCUSS DISCHARGE PLANNING AND NEEDS. PT REPORTS PLAN TO DISCHARGE HOME WITH HIS , TO TRANSPORT HOME. CM DISCUSSED AVAILABILITY OF HOME HEALTH, MEDICAL EQUIPMENT AND REHAB SERVICES. PT REPORTS THAT DR. SORIA HAD MENTIONED HAVING HOME HEALTH NURSE CHECKING ON HIM AFTER DISCHARGE HOME. PT CHOSE [facility]. CM CALLED DR. SORIA'S OFFICE, SPOKE TO ETDDY MILLS WHO CALLED CM BACK AND ADVISED THAT DR. SORIA DID WANT HOME HEALTH FOR PT AT DISCHARGE, DR. SORIA WILL CHECK PT'S TELEMETRY STRIPS LATER THIS AFTERNOON AND MAY DC HOME IF STABLE. CM NOTIFIED PT. IMPORTANT MESSAGE FROM MEDICARE PROVIDED AND EXPLAINED. CM CALLED [facility], , PROVIDED REFERRAL INFORMATION TO BRITANY AGGARWAL FAXED REFERRAL TO [facility] AT [phone]. FOR DISCHARGE, NOTIFY [facility], , FAX DISCHARGE INFORMATION TO [place] AT [phone]. JENNIFER HILLIARD, CASE MANAGEMENT
--- NOTE | 2016-06-18 16:55 | NUR ---
WITHOUT CHANGES OR DISTRESS NOTED AT THIS TIME DENIES NEEDS.
[2016-06-18 21:43] VITALS: BP 133/76
[2016-06-19 01:28] VITALS: BP 148/74
[2016-06-19 05:20] LABS: BASOPHILS 0.2 % (0.0-2.0); EOSINOPHILS 2.2 % (0-7); HEMATOCRIT 27.6 % (42.0-54.0); HEMOGLOBIN 8.9 g/dL (13.5-17.5); IMMATURE GRANULOCYTES 2.1 % (0-5); LYMPHOCYTES 9.8 % (15-50); MCHC 32.2 g/dL (31.0-37.0); MCV 96.2 fL (80.0-100.0); MEAN PLATELET VOLUME 10.8 fL (7.4-10.4); MONOCYTES 9.4 % (2-11); NEUTROPHILS 76.3 % (40-80); PLATELET COUNT 257 10x3/uL (130-400); RBC 2.87 10x6/uL (4.20-6.10); RDW 16.2 % (11.5-14.5); WBC 12.1 10x3/uL (4.8-10.8)
[2016-06-19 05:45] VITALS: BP 154/55
[2016-06-19 05:45] LABS: ANION GAP 17.1 mmol/L (8-16); CALCIUM 8.7 mg/dL (8.5-10.1); CARBON DIOXIDE 19.9 mmol/L (21.0-32.0); CREATININE - SERUM 2.5 mg/dL (0.6-1.3)
[2016-06-19] MEDS ORDERED: ISOSORBIDE DINI20 MG PO (06:55)
[2016-06-19] MEDS ORDERED: ELIQUIS2.5 MG PO (06:55)
[2016-06-19] MEDS ORDERED: FLOMAX0.4 MG PO (06:55)
[2016-06-19] MEDS ORDERED: NIFEDIPINE ER60 MG PO (06:56)
[2016-06-19] MEDS ORDERED: LASIX40 MG PO (06:56)
[2016-06-19] MEDS ORDERED: HYDRALAZINE HCL50 MG PO (06:56)
[2016-06-19] MEDS ORDERED: RENVELA0.8 GM PO (06:56)
[2016-06-19] MEDS ORDERED: PROTONIX40 MG PO (06:57)
[2016-06-19] MEDS ORDERED: K-DUR20 MEQ PO (06:57)
[2016-06-19] MEDS ORDERED: HUMULIN N100 U/ML SC (06:58)
[2016-06-19] MEDS ORDERED: FOLATE0.4 MG PO (06:58)
[2016-06-19 08:00] VITALS: BP 161/66
--- NOTE | 2016-06-19 08:02 | NUR ---
ASSESSMENT DONE. DENIES NEEDS.
[2016-06-19] MEDS ORDERED: PLAVIX75 MG PO (09:22)
[2016-06-19] MEDS ORDERED: CORDARONE200 MG PO (09:23)
[2016-06-19] MEDS ORDERED: ASPIRIN81 MG PO (09:25)
--- NOTE | 2016-06-19 09:38 | NUR ---
UP AMBULATING HALLWAY ADLIB. GAIT STEADY.
--- NOTE | 2016-06-19 10:34 | NUR ---
DC GIVEN TO PT
--- NOTE | 2016-06-19 11:15 | NUR ---
DC HOME PER PERSONAL CAR
--- NOTE | 2016-06-19 11:53 | NUR ---
Patient Name: BIMAL PALOMINO Encounter No: [id number] : 1950 Primary Insurance: MEDICARE A & B Anticipated DC Date: 06-19-2016 Planned Disposition: Home with Home Health External Planned Provider: [facility] LATE ENTRY: DCP follow-up note: CM NOTIFIED KRIS OF [facility], , REGARDING DISCHARGE TODAY, FAXED DISCHARGE INFORMATION TO [place] AT [phone]. JENNIFER HILLIARD, CASE MANAGEMENT
== END 2016-06-19 11:34 | disposition home health service (06) | DRG 248 ==
LOC: EDBD 19:15 → D.ER 19:15 → D.M2 20:39 → D.ICU 20:39 → D.M2 06-14 16:04
PROVIDERS: Emergency Medicine; Family Medicine; Internal Medicine Interventional Cardiology; Internal Medicine Nephrology; Internal Medicine Pulmonary Disease; ADMIT Family Medicine
PROC: 5A1945Z Respiratory Ventilation, 24-96 Consecutive Hours (ICD-10-PCS; principal; 2016-06-06)
PROC: 0BH17EZ Insertion of Endotracheal Airway into Trachea, Via Natural or Artificial Opening (ICD-10-PCS; 2016-06-06)
PROC: 4A023N7 Measurement of Cardiac Sampling and Pressure, Left Heart, Percutaneous Approach (ICD-10-PCS; 2016-06-11)
PROC: B211YZZ Fluoroscopy of Multiple Coronary Arteries using Other Contrast (ICD-10-PCS; 2016-06-11)
PROC: B215YZZ Fluoroscopy of Left Heart using Other Contrast (ICD-10-PCS; 2016-06-11)
PROC: 02703DZ Dilation of Coronary Artery, One Artery with Intraluminal Device, Percutaneous Approach (ICD-10-PCS; 2016-06-11 11:30)
PROC: 02703DZ Dilation of Coronary Artery, One Artery with Intraluminal Device, Percutaneous Approach (ICD-10-PCS; 2016-06-12)
DX: I25.10 Atherosclerotic heart disease of native coronary artery without angina pectoris (principal); J96.00 Acute respiratory failure, unspecified whether with hypoxia or hypercapnia; I50.31 Acute diastolic (congestive) heart failure; N18.6 End stage renal disease; N17.0 Acute kidney failure with tubular necrosis; I46.2 Cardiac arrest due to underlying cardiac condition; I13.2 Hypertensive heart and chronic kidney disease with heart failure and with stage 5 chronic kidney disease, or end stage renal disease; E11.9 Type 2 diabetes mellitus without complications; I48.91 Unspecified atrial fibrillation; E11.22 Type 2 diabetes mellitus with diabetic chronic kidney disease; E87.6 Hypokalemia

== ENCOUNTER 2016-06-25 10:54 | Inpatient (IN) | payer MEDICARE, OTHER ==
[~2016-06-25] VITALS: Ht 185.4 cm; Wt 84.5 kg
[~2016-06-25 10:54] MED LIST: ASPIRIN81 MG PO; COLCRYS0.6 MG PO; CORDARONE200 MG PO; COZAAR100 MG PO; ELIQUIS2.5 MG PO; FLOMAX0.4 MG PO; FOLATE0.4 MG PO; FUROSEMIDE40 MG PO; HUMULIN N100 U/ML SC; HYDRALAZINE HCL50 MG PO; HYDROCODONE-APA1 TAB PO; ISOSORBIDE DINI20 MG PO; K-DUR20 MEQ PO; LASIX40 MG PO; NIFEDICAL30 MG/BOTT PO; NIFEDIPINE ER60 MG PO; NOVOLIN N100 U/ML SQ; PLAVIX75 MG PO; POTASSIUM CL ER 10 M PO; PROAIR HFA8.5 GM INH; PROTONIX40 MG PO; RENVELA0.8 GM PO; ULORIC80 MG PO
[2016-06-25 11:38] LABS: BASOPHILS 0.1 % (0.0-2.0); EOSINOPHILS 0.2 % (0-7); HEMATOCRIT 23.1 % (42.0-54.0); IMMATURE GRANULOCYTES 0.2 % (0-5); LYMPHOCYTES 11.1 % (15-50); MCH 30.2 pg (26.0-34.0); MCV 94.3 fL (80.0-100.0); MEAN PLATELET VOLUME 9.9 fL (7.4-10.4); MONOCYTES 7.6 % (2-11); NEUTROPHILS 80.8 % (40-80); PLATELET COUNT 256 10x3/uL (130-400); RBC 2.45 10x6/uL (4.20-6.10); RDW 15.6 % (11.5-14.5); WBC 11.2 10x3/uL (4.8-10.8)
[2016-06-25 11:55] LABS: ALBUMIN 2.6 g/dL (3.4-5.0); ANION GAP 22.6 mmol/L (8-16); BILIRUBIN - TOTAL 0.91 mg/dL (0.2-1.3); CALCIUM 9.7 mg/dL (8.5-10.1); CARBON DIOXIDE 17.9 mmol/L (21.0-32.0); HEMOGLOBIN 7.4 g/dL (13.5-17.5); POTASSIUM - SERUM 5.5 mmol/L (3.5-5.1); PROTEIN - SERUM 7.3 g/dL (6.4-8.2)
--- NOTE | 2016-06-25 13:50 | NUR ---
PT RESTING QUIETLY DENIES ANY NEEDS AT THIS TIME
[2016-06-25] MEDS ORDERED: HUMULIN N100 U/ML SC ×2 (13:59)
[2016-06-25 14:00] VITALS: BP 152/45; BMI 26.4
[2016-06-25 14:03] VITALS: BP 152/45; BMI 26.4
--- NOTE | 2016-06-25 14:21 | NUR ---
1340-RECEIVED VIA STRTCHER TO ROOM. LEFT HAND AND RIGHT FOOT ARE 2-3+ SWOLLEN. NO SKIN BREAKDOWN SEEN. WILL ADMIT. SALINE LOCK SEEN TO RIGHT HAND.
--- NOTE | 2016-06-25 15:03 | NUR ---
FIRST OF TWO BOTTLES KAYEXALATE GIVEN. IMMEDIATLEY THROWS UP WITH SOME UNDIGSTED FOOD. COMPLETE LINEN CHANGE DONE.
--- NOTE | 2016-06-25 15:09 | NUR ---
Patient Name: BIMAL MOLINA Admission Status: ER Accout number: [id number] Admission Date: 06-25-2016 : 1950 Admission Diagnosis: Acute Renal Failure Attending: Jona SORIA Current LOS: 1 Anticipated DC Date: 06/28/16 Planned Disposition: Return home with spouse and resumption of [facility]. Primary Insurance: MEDICARE A & B Discharge Planning Comments: CM met with patient and family to complete initial discharge assessment. Patient gave consent for cm to complete assessment. Patient resides at home with his and is independent in his care at home. His does all the cooking. Patient is alone during the day till 3pm when his gets off work. He denied use of assistive devices for ambulatory aide. Recently discharged from the hospital last week with cardiac issues. Patient at this time plans to return home with his and resumption of home health. Cm will continue to follow and assist with dc plans/needs. Bible Reader: Catherine Pizano RN, CCM Is the patient Alert and Oriented? Yes * How many steps to enter\exit or inside your home? 4 * PCP Dr. Soria * [facility] * Preadmission Environment Home with Family * ADLs Independent * Equipment None * List name and contact numbers for known caregivers / representatives who currently or will assist patient after discharge: Zeina Molina - Spouse - [phone] or Ivone Roberson sister in law - [phone] (work) * Community resources currently utilized Home Health * Please name any agencies selected above. [facility] * Additional services required to return to the preadmission environment? No * Can the patient safely return to the preadmission environment? Yes * Has this patient been hospitalized within the prior 30 days at any hospital? Yes
[2016-06-25 15:51] LABS: ERYTHROCYTE SEDIMENTATION RATE 135 mm/hr (0-20)
[2016-06-25 16:30] VITALS: BP 135/48
--- NOTE | 2016-06-25 17:22 | NUR ---
STILL WORKING ON KAYEXALATE, REPORTS THAT EVERYTIME HE SIPS IT, HE GETS NAUSEATED. WILL CONTINUE TO MONITOR.
--- NOTE | 2016-06-25 19:39 | NUR ---
RESUMED CARE OF PT, SLEEPING, IV-R.HAND-NS-30, RESERVED L. ARM. [id number], CALL LIGHT IN REACH, BED IS LOW, SRX2, WILL CONTINUE TO MONITOR
[2016-06-25 21:09] VITALS: BP 118/38
[2016-06-25 23:48] VITALS: BP 124/38
[2016-06-26 02:11] LABS: PROTEIN - URINE 50.7 mg/dL (0.0-11.9)
[2016-06-26 02:12] LABS: CREATININE - URINE 248.7 mg/dL (30-125); PRO/CRE RATIO URINE 0.2 mg/g
[2016-06-26 02:18] LABS: APPEARANCE HAZY (CLEAR); BILIRUBIN NEGATIVE (NEGATIVE); COLOR YELLOW (YELLOW); GLUCOSE NEGATIVE (NEGATIVE); KETONE NEGATIVE (NEGATIVE); LEUKOCYTE ESTERASE TRACE (NEGATIVE); NITRITE NEGATIVE (NEGATIVE); PROTEIN 1+ mg/dL (NEGATIVE); UROBILINOGEN NORMAL (NORMAL)
[2016-06-26 02:20] LABS: AMORPHOUS SEDIMENT <1+ /lpf (NONE SEEN); BACTERIA MANY /hpf (NONE SEEN); EPITHELIAL CELLS 0-5 /hpf (0-5); GRANULAR CAST 0-5 /lpf (NONE SEEN); HYALINE CAST 0-5 /lpf (NONE SEEN); MUCUS <1+ /lpf (NONE SEEN); RED CELLS - URINE 0-5 /hpf (0-5); WHITE CELLS - URINE 0-5 /hpf (0-5)
--- NOTE | 2016-06-26 03:56 | NUR ---
SLEEPING WITHOUT ANY DISTRESS.
[2016-06-26 05:07] LABS: BASOPHILS 0.1 % (0.0-2.0); EOSINOPHILS 0.3 % (0-7); HEMATOCRIT 21.7 % (42.0-54.0); IMMATURE GRANULOCYTES 0.1 % (0-5); LYMPHOCYTES 5.2 % (15-50); MCH 29.6 pg (26.0-34.0); MCHC 31.8 g/dL (31.0-37.0); MCV 93.1 fL (80.0-100.0); MONOCYTES 14.8 % (2-11); NEUTROPHILS 79.5 % (40-80); PLATELET COUNT 260 10x3/uL (130-400); RBC 2.33 10x6/uL (4.20-6.10); RDW 15.8 % (11.5-14.5); WBC 8.6 10x3/uL (4.8-10.8)
[2016-06-26 05:08] LABS: HEMOGLOBIN 6.9 g/dL (13.5-17.5)
[2016-06-26 05:12] VITALS: BP 133/53
[2016-06-26 05:31] LABS: ALBUMIN 2.3 g/dL (3.4-5.0); ANION GAP 23.1 mmol/L (8-16); BILIRUBIN - TOTAL 0.78 mg/dL (0.2-1.3); CALCIUM 9.2 mg/dL (8.5-10.1); CARBON DIOXIDE 17.1 mmol/L (21.0-32.0); CREATININE - SERUM 6.7 mg/dL (0.6-1.3); PHOSPHOROUS 5.2 mg/dL (2.5-4.9); POTASSIUM - SERUM 5.2 mmol/L (3.5-5.1); PROTEIN - SERUM 6.7 g/dL (6.4-8.2)
[2016-06-26 05:32] LABS: TROPONIN-I 0.158 ng/mL (0.000-0.060)
--- NOTE | 2016-06-26 05:50 | NUR ---
CRITICAL LAB HGB 6.9. HCT 21.7. DR YANG BENAVIDEZ.
--- NOTE | 2016-06-26 06:35 | NUR ---
DR. MOYA REPAGED BUT NO RETURN CALL. WILL REPORT LAB TO HIM WHEN HE MAKES ROUNDS.
--- NOTE | 2016-06-26 06:43 | NUR ---
DR. SORIA HERE TO MAKE ROUNDS. INFORMED HIM OF H&H. HE INSTRUCTED ME TO CALL RENAL. VI MARIO APN TOLD OF H& H AND ORDERS RECEIVED.
--- NOTE | 2016-06-26 07:00 | NUR ---
PT. WAS RECEIVED AT THE BEGINNING OF THIS SHIFT. AWAKE AND ORIENTED X 3. DR. CLEMONS ROUNDING AND NEW ORDERS RECEIVED TO PUT WALL CATHETER IN PT. AND DC IV FLUIDS AND SALINE LOCK THE IV. TELEMENTY ON AND WORKING PROPERLY. RT. HAND IV SALINE LOCKED. WILL BE MONITORING PT. AND ASSISTING PRN WITH ADL'S.
[2016-06-26 08:16] LABS: THYROID STIMULATING HORMONE 2.86 uIU/mL (0.36-3.74); URIC ACID 8.9 mg/dL (2.6-7.2)
[2016-06-26 08:31] VITALS: BP 138/43
[2016-06-26 11:42] VITALS: BP 120/49
[2016-06-26 13:27] VITALS: Ht 185.4 cm; Wt 84.5 kg
--- NOTE | 2016-06-26 14:10 | NUR ---
PT HAS A SIZE 16 WALL CATHETER PLACED WITH AUTOMATIC YELLOW URINE RETURN IN DRAINAGE BAY SYSTEM. PT. REQUIRES ASSIST UP TO BATHROOM. SEVERAL BOWEL MOVEMENTS THIS MORNING IN COMMODE IN BATHROOM. CALL LIGHT IN REACH. PT. CONTINUE TO BE ALERT AND ORIENTED X 3.
[2016-06-26 15:51] VITALS: BP 98/54
[2016-06-26 16:14] LABS: SPE - A/G RATIO 0.9 (0.7-1.7); SPE - ALPHA-1 GLOBULIN 0.5 g/dL (0.0-0.4); SPE - ALPHA-2 GLOBULIN 0.9 g/dL (0.4-1.0); SPE - BETA GLOBULIN 0.9 g/dL (0.7-1.3); SPE - GAMMA GLOBULIN 0.9 g/dL (0.4-1.8); SPE - M-SPIKE Not Observed g/dL (Not Observed); SPE - TOTAL PROTEIN 6.2 g/dL (6.0-8.5)
[2016-06-26 19:00] VITALS: BP 147/73
--- NOTE | 2016-06-26 19:00 | NUR ---
PRBCs INFUSION COMPLETE VSS STABLE PT DENIES ANY NEEDS OR DISCOMFORT AT THIS TIME NAD NOTED WILL CONTINUE TO MONITOR
--- NOTE | 2016-06-26 21:51 | NUR ---
FSBS 116 REFUSES TIMED INSULIN STATES IF I TAKE THAT MY BLOOD SUGAR WILL GET TO LOW
[2016-06-27] VITALS: BP 137/69
[2016-06-27 04:00] VITALS: BP 141/72
[2016-06-27 04:56] LABS: BASOPHILS 0.1 % (0.0-2.0); EOSINOPHILS 0.6 % (0-7); HEMATOCRIT 23.2 % (42.0-54.0); HEMOGLOBIN 7.6 g/dL (13.5-17.5); IMMATURE GRANULOCYTES 0.2 % (0-5); LYMPHOCYTES 6.2 % (15-50); MCH 29.8 pg (26.0-34.0); MCHC 32.8 g/dL (31.0-37.0); MEAN PLATELET VOLUME 10.1 fL (7.4-10.4); MONOCYTES 10.7 % (2-11); NEUTROPHILS 82.2 % (40-80); PLATELET COUNT 272 10x3/uL (130-400); RBC 2.55 10x6/uL (4.20-6.10); RDW 15.9 % (11.5-14.5); WBC 8.6 10x3/uL (4.8-10.8)
[2016-06-27 05:14] LABS: ALBUMIN 2.2 g/dL (3.4-5.0); ANION GAP 21.5 mmol/L (8-16); BILIRUBIN - TOTAL 0.78 mg/dL (0.2-1.3); CARBON DIOXIDE 16.6 mmol/L (21.0-32.0); CREATININE - SERUM 6.5 mg/dL (0.6-1.3); PHOSPHOROUS 5.5 mg/dL (2.5-4.9); PROTEIN - SERUM 6.2 g/dL (6.4-8.2)
[2016-06-27 05:19] LABS: POTASSIUM - SERUM 4.1 mmol/L (3.5-5.1)
[2016-06-27 07:39] VITALS: BP 122/72
[2016-06-27 11:38] VITALS: BP 122/53
--- NOTE | 2016-06-27 13:02 | NUR ---
WALL CATHETER BALLOON DEFLATED OF 8CC CLEAR FLUID. ADVANCED CATHETER TIL HUB MET HEAD OF PENIS. REINFLATED BALLOON. CLEAR URINE SEEN
[2016-06-27 15:25] VITALS: BP 121/79
--- NOTE | 2016-06-27 17:57 | NUR ---
RECEIVED REPORT, IV-EMERSON, BLOOD IS INFUSING,[id number],SITTING ON SIDE OF BED EATING DINNER, PT HAS [employer], VISITING WITH FAMILY, DENIES ANY NEEDS AT THIS TIME WILL CONTINUE TO MONITOR
[2016-06-27 20:08] LABS: UPE RAND - ALBUMIN 65.1 % (()); UPE RAND - ALPHA 1 GLOBULIN 1.5 % (()); UPE RAND - ALPHA 2 GLOBULIN 7.2 % (()); UPE RAND - BETA GLOBULIN 6.8 % (()); UPE RAND - GAMMA GLOBULIN 19.4 % (())
[2016-06-27 22:54] VITALS: BP 128/52
[2016-06-28 00:30] VITALS: BP 150/51
--- NOTE | 2016-06-28 01:31 | NUR ---
LYING IN BED, CALL LIGHT IN REACH. WILL CONTINUE WITH PLAN OF CARE.
[2016-06-28 05:12] LABS: BASOPHILS 0.1 % (0.0-2.0); EOSINOPHILS 1.9 % (0-7); HEMATOCRIT 25.2 % (42.0-54.0); HEMOGLOBIN 8.1 g/dL (13.5-17.5); IMMATURE GRANULOCYTES 0.3 % (0-5); LYMPHOCYTES 11.6 % (15-50); MCH 29.1 pg (26.0-34.0); MCHC 32.1 g/dL (31.0-37.0); MCV 90.6 fL (80.0-100.0); MEAN PLATELET VOLUME 9.9 fL (7.4-10.4); MONOCYTES 10.9 % (2-11); NEUTROPHILS 75.2 % (40-80); PLATELET COUNT 270 10x3/uL (130-400); RBC 2.78 10x6/uL (4.20-6.10); RDW 16.7 % (11.5-14.5); WBC 6.8 10x3/uL (4.8-10.8)
[2016-06-28 05:22] LABS: CALCIUM 8.4 mg/dL (8.5-10.1); CARBON DIOXIDE 17.8 mmol/L (21.0-32.0); CREATININE - SERUM 6.2 mg/dL (0.6-1.3); PHOSPHOROUS 5.2 mg/dL (2.5-4.9); POTASSIUM - SERUM 3.8 mmol/L (3.5-5.1)
[2016-06-28 05:23] VITALS: BP 104/37
[2016-06-28 08:00] VITALS: BP 132/40
[2016-06-28 12:00] VITALS: BP 122/39
--- NOTE | 2016-06-28 14:44 | NUR ---
PLACED SCDS TO LEGS BILATERALLY.
[2016-06-28 16:00] VITALS: BP 124/50
[2016-06-28 21:18] VITALS: BP 125/83
[2016-06-29 01:12] VITALS: BP 145/56
[2016-06-29 04:58] LABS: BASOPHILS 0.2 % (0.0-2.0); EOSINOPHILS 2.8 % (0-7); HEMATOCRIT 26.8 % (42.0-54.0); HEMOGLOBIN 8.6 g/dL (13.5-17.5); IMMATURE GRANULOCYTES 0.7 % (0-5); LYMPHOCYTES 10.7 % (15-50); MCH 29.4 pg (26.0-34.0); MCHC 32.1 g/dL (31.0-37.0); MCV 91.5 fL (80.0-100.0); MONOCYTES 14.4 % (2-11); NEUTROPHILS 71.2 % (40-80); PLATELET COUNT 283 10x3/uL (130-400); RBC 2.93 10x6/uL (4.20-6.10); RDW 16.6 % (11.5-14.5); WBC 5.7 10x3/uL (4.8-10.8)
[2016-06-29 05:01] VITALS: BP 139/47
[2016-06-29 05:29] LABS: ANION GAP 21.1 mmol/L (8-16); CALCIUM 7.9 mg/dL (8.5-10.1); CARBON DIOXIDE 17.6 mmol/L (21.0-32.0); CREATININE - SERUM 6.1 mg/dL (0.6-1.3); POTASSIUM - SERUM 3.7 mmol/L (3.5-5.1)
--- NOTE | 2016-06-29 07:26 | NUR ---
0715-AM ROUNDING DONE. PATIENT IS SITTING ON SIDE OF BED. DENIES NEEDS AT PRESENT TIME. ON ROOM AIR. ON HEART MONITOR SHOWING CAF, HR 60. SAINE LOCK SEEN TO RIGHT HAND. LEFT ARM AVF, + BRUIT AND THRILL. WALL CATH SEEN WITH YELLOW URINE. NON SKID SOCKS ON, 2+ EDEMA SEEN TO RIGHT FOOT, LEFT FOOT NORMAL. WILL CONTINUE TO MONITOR.
[2016-06-29 08:00] VITALS: BP 142/59
--- NOTE | 2016-06-29 09:13 | NUR ---
UP WITH THERAPY AND ROLLING WALKER AROUND NURSING STATION. COMPLETE BED LINEN CHANGED. STATES THAT HE WANTS TO WAIT ON BATH AT THIS TIME. WARM BLANKET GIVEN PER REQUEST.
[2016-06-29 12:00] VITALS: BP 141/64
--- NOTE | 2016-06-29 14:09 | NUR ---
Nutrition follow-up: diet: Renal ADA consistent CHO PO intake ~50% of meals Labs reviewed +BM PO intake is poor at this time. RDN will order Ensure BID. Following.
--- NOTE | 2016-06-29 15:22 | NUR ---
CLEANED UP FROM INCONT. OF STOOL. SENT TO LAB ORDERED.
[2016-06-29 16:00] VITALS: BP 131/56
--- NOTE | 2016-06-29 18:04 | NUR ---
UP IN CHAIR FOR SUPPER, AT BEDSIDE. CALL LIGHT IN USE, WILL CONTINUE TO MONITOR.
[2016-06-29 22:07] VITALS: BP 185/49
--- NOTE | 2016-06-29 22:20 | NUR ---
INITIAL ROUNDS COMPLETED AT 1914 HRS. PT DENIED ANY DISCOMFORT. ASSESSMENT COMPLETED AT 2044 HRS. VSS. A-FLUTTER PER CM HR 67. IV TO R HAND SL. LAVF WITH GOOD BRUIT AND THRILL. LUNGS DIMINISHED IN BASES BILAT. WALL DRAINING YELLOW URINE. TRACE EDEMA TO BILAT FEET. PM FSBS 149. NO COVERAGE NEEDED. SCHEDULED NPH GIVEN. PM MEDS AND PM SNACK GIVEN. PT CURRENTLY WATCHING TV; DENIES ANY DISCOMFORT. SR UP X2, CALL LIGHT WITHIN REACH.
--- NOTE | 2016-06-30 00:50 | NUR ---
ASSISTED PT TO BR. HAD MODERATE AMOUNT OF DIARRHEA. ASSISTED BACK TO BED. GAIT SLIGHTLY UNSTEADY. SCHEDULED MEDS GIVEN. WILL CONTINUE TO MONITOR. SR UP X2, CALL LIGHT WITHIN REACH.
[2016-06-30 01:00] VITALS: BP 130/48
--- NOTE | 2016-06-30 02:19 | NUR ---
PT RESTINTG WITH EYES CLOSED. RESP EVEN AND REGULAR. SR UP X2, CALL LIGHT WITHIN REACH.
--- NOTE | 2016-06-30 04:01 | NUR ---
PT RESTING WITH EYES CLOSED. RESP EVEN AND REGULAR. SR U P X2, CALL LIGHT WITHIN REACH.
[2016-06-30 04:31] VITALS: BP 126/82
--- NOTE | 2016-06-30 06:33 | NUR ---
VSS THROUGHOUT NIGHT. A-FLUTTER PER CM. PT DENIED ANY DISCOMFORT. AM FSBS 127. NO COVERAGE NEEDED. NEEDS MET; WILL CONTINUE TO MONITOR.
--- NOTE | 2016-06-30 07:19 | NUR ---
0700-PATIENT IS IN RESTROOM WITH LOOSE STOOL THIS AM. WALL CATH PATENT WITH YELLOW URINE. RIGHT HAND SEEN WITH SALINE LOCK, LEFT AVF WITH + BRUIT AND THRILL. ON ROOM AIR. ON HEART MONITOR SHOWING AFLUTTER, HR 61. NON SKID SOCKS ARE ON. ASSISTED TO CHAIR PAST BATHROOM USAGE. CALL LIGHT IN PLACE. WILL CONTINUE TO MONITOR.
[2016-06-30 07:21] LABS: BASOPHILS 0.2 % (0.0-2.0); EOSINOPHILS 4.2 % (0-7); HEMATOCRIT 31.8 % (42.0-54.0); HEMOGLOBIN 10.2 g/dL (13.5-17.5); LYMPHOCYTES 9.9 % (15-50); MCH 29.4 pg (26.0-34.0); MCHC 32.1 g/dL (31.0-37.0); MCV 91.6 fL (80.0-100.0); MEAN PLATELET VOLUME 9.9 fL (7.4-10.4); MONOCYTES 14.7 % (2-11); PLATELET COUNT 326 10x3/uL (130-400); RBC 3.47 10x6/uL (4.20-6.10); RDW 16.9 % (11.5-14.5); WBC 5.8 10x3/uL (4.8-10.8)
[2016-06-30 07:31] LABS: ANION GAP 20.6 mmol/L (8-16); CALCIUM 8.3 mg/dL (8.5-10.1); CARBON DIOXIDE 17.7 mmol/L (21.0-32.0); CREATININE - SERUM 5.4 mg/dL (0.6-1.3); PHOSPHOROUS 4.2 mg/dL (2.5-4.9); POTASSIUM - SERUM 3.3 mmol/L (3.5-5.1)
[2016-06-30 08:00] VITALS: BP 128/54
--- NOTE | 2016-06-30 08:42 | NUR ---
PAGE INTO VI MARIO APN R/T B/P 123/54. SHE IMMEDIATLEY CALLED BACK AND ASKED ME TO HOLD ALL B/P MEDS AND LASIX UNTIL B/P IS GREATER THAN 150 AND THEN ONLY GIVE THE PROCARDIA.
--- NOTE | 2016-06-30 10:34 | NUR ---
1030-WALL CATH REMOVED PAST BULB DEFLATION. PATIENT IS INSTRUCTED IN USING URINAL TO VOID AND TO CALL US EACH TIME. STATES TO UNDERSTANDING.
[2016-06-30 12:00] VITALS: BP 131/55
--- NOTE | 2016-06-30 13:35 | NUR ---
PATIENT TO USE URINAL AND VOIDED 100 CC.
[2016-06-30 16:27] VITALS: BP 159/51
--- NOTE | 2016-06-30 17:19 | NUR ---
UP TO CHAIR FOR SUPPER. DENIES NEEDS AT PRESENT TIME. WILL CONTINUE TO MONITOR.
--- NOTE | 2016-06-30 19:39 | NUR ---
INITIAL ROUNDS COMPLETED. PT SITTING UP IN A CHAIR. DENIES ANY DISCOMFORT. WILL CONTINUE TO OMAR.
[2016-06-30 21:20] VITALS: BP 144/49
--- NOTE | 2016-06-30 23:35 | NUR ---
ASSESSMENT COMPLETED AT 2015 HRS. VSS. A-FLUTTER PER CM HR 73. PT DENEID ANY DISCOMFORT. IV TO R HAND SL. LAVF WITH GOOD BRUIT AND THRILL. LUNGS DIMINISHED IN BASES BILAT. TRACE PEDAL EDEMA. PT REFUSES SCD'S. PM FSBS 134. NO COVERAGE NEEDED. PM MEDS GIVEN. PT CURRENTLY RESTING WITH EYES CLOSED. RESP EVEN AND REGULAR. SR UP X2, CALL LIGHT WITHIN REACH.
[2016-07-01 00:20] VITALS: BP 160/62
[2016-07-01 00:30] VITALS: BP 149/91; BP 160/62
--- NOTE | 2016-07-01 01:19 | NUR ---
PT SITTING UP IN CHAIR; DENIES ANY DISCOMFORT. WILL CONTINUE TO MONITOR.
--- NOTE | 2016-07-01 02:35 | NUR ---
PT RESTING WITH EYES CLOSED. RESP EVEN AND REGULAR. SR UP X2, CALL LIGHT WITHIN REACH.
[2016-07-01 04:30] VITALS: BP 162/57
--- NOTE | 2016-07-01 04:41 | NUR ---
PT RESTING WITH EYES CLOSED. RESP EVEN AND REGULAR. SR UP X2, CALL LIGHT WITHIN REACH.
[2016-07-01 05:34] LABS: BASOPHILS 0.2 % (0.0-2.0); EOSINOPHILS 5.5 % (0-7); HEMATOCRIT 31.1 % (42.0-54.0); HEMOGLOBIN 9.9 g/dL (13.5-17.5); IMMATURE GRANULOCYTES 1.2 % (0-5); LYMPHOCYTES 13.7 % (15-50); MCH 29.2 pg (26.0-34.0); MCHC 31.8 g/dL (31.0-37.0); MCV 91.7 fL (80.0-100.0); MEAN PLATELET VOLUME 9.8 fL (7.4-10.4); MONOCYTES 13.1 % (2-11); NEUTROPHILS 66.3 % (40-80); PLATELET COUNT 305 10x3/uL (130-400); RBC 3.39 10x6/uL (4.20-6.10); RDW 16.7 % (11.5-14.5); WBC 5.1 10x3/uL (4.8-10.8)
[2016-07-01 06:07] LABS: ANION GAP 19.1 mmol/L (8-16); CALCIUM 7.6 mg/dL (8.5-10.1); CREATININE - SERUM 4.4 mg/dL (0.6-1.3); POTASSIUM - SERUM 3.1 mmol/L (3.5-5.1)
--- NOTE | 2016-07-01 06:37 | NUR ---
VSS TH ROUGHOUT NIGHT. A-FLUTTER PER CM. AM APRESOLINE GIVEN FOR SBP GREATER THAN 160. AM FSBS 91. NO COVERAGE NEEDED. AM NPH GIVEN CRANBERRY JUICE AND VANESSA CRACKERS GIVEN PER REQUEST. NEEDS MET; WILL CONITNUE TO MONITOR.
--- NOTE | 2016-07-01 07:27 | NUR ---
UP IN CHAIR AT SHIFT CHANGE, DENIES NEEDS AT PRESENT TIME. REPORTS TO ONLY 1 SMALL LOOSE STOOL ON LAST SHIFT. ON HEART MONITOR SHOWING, AFLUTTER WITH HR 72. SALINE LOCK SEEN TO RIGHT HAND. LEFT AVF WITH + BRUIT AND THRILL. BILATERAL FEET AND HANDS ARE 1+ TODDAY. WILL CONTINUE TO MONIOR.
[2016-07-01 09:10] VITALS: BP 159/55
[2016-07-01] MEDS ORDERED: FLOMAX0.4 MG PO (09:51)
[2016-07-01] MEDS ORDERED: CORDARONE200 MG PO (09:52)
[2016-07-01] MEDS ORDERED: SODIUM BICARBO650 MG PO (09:52)
[2016-07-01] MEDS ORDERED: LASIX40 MG PO (09:52)
[2016-07-01] MEDS ORDERED: PEPCID20 MG PO (09:52)
[2016-07-01] MEDS ORDERED: K-TAB10 MEQ PO (09:52)
[2016-07-01] MEDS ORDERED: COLCRYS0.6 MG PO (09:53)
[2016-07-01] MEDS ORDERED: CARAFATE1 G PO (09:53)
[2016-07-01 12:00] VITALS: BP 196/58
[2016-07-01 12:11] VITALS: BP 196/58
--- NOTE | 2016-07-01 12:17 | NUR ---
ASSISTED TO CHAIR FOR LUNCH. VOIDS TO URNIANL. WILL CONTINUE TO MONITOR.
--- NOTE | 2016-07-01 14:30 | NUR ---
VERBAL AND WRITTEN DISCHARGE INSTRUCTIONS GIVEN TO AND PATIENT. SALINE LOCK REMOVED WITH CATH TIP INTACT. DISCHARGED HOME VIA WHEELCHAIR.
--- NOTE | 2016-07-01 16:59 | NUR ---
LATE ENTRY TC TO [facility] TO ADVISE OF DISCHARGE TO HOME W/ RESUMMATION OF CARE ORDER. cm FAXED CLINICAL FOR UPDATE AND REFERRAL CM SPOKE W/ KRIS, [employer]. PATIENT HAS BEEN ASSIGNED. [facility] WILL CALL TO ADVISE PATIENT OF VISIT DATE.
--- NOTE | 2016-07-02 14:16 | CN ---
PATIENT NAME:BIMAL MOLINA MEDICAL RECORD: [id number] : [birth year] LOCATION:. D.[id number] ADMIT DATE: 06/25/16 ACCOUNT: [id number] CONSULTING PHYSICIAN: SABI ESPANA MD REFERRING PHYSICIAN: JHONY SORIA DO DATE OF CONSULTATION: 06/26/2016 DIAGNOSES: 1. Anemia. 2. Renal failure. 3. Coronary artery disease, status post recent 2-vessel PTCA stent right coronary artery and left anterior descending. 4. Status post recent cardiopulmonary arrest. 5. Atrial fibrillation. HISTORY OF PRESENT ILLNESS: Mr. Molina presented earlier this month with a cardiac arrest, found to have 2-vessel coronary artery disease of the RCA and LAD, underwent successful PTCA and stent of both of these. He as well had atrial fibrillation. He was discharged home with the addition of Plavix as well as Eliquis to his medical regimen. He now comes back, he is still in atrial fibrillation. Rate is controlled on his current medications. Hemoglobin of 6.9. He is receiving blood. PHYSICAL EXAMINATION: GENERAL APPEARANCE: Well-nourished, well-developed, appears stated age. Level of distress, comfortable. PSYCHIATRIC: Mental status, alert, normal affect. Orientation, oriented to time, place and person. EYES: Lids and conjunctiva, noninjected. No discharge, no pallor. ENT: Lips, teeth, gums, normal dentition. Oropharynx, no cyanosis, no pallor. NECK: Carotid arteries, bilateral normal upstroke, no bruits, no thrills. JUGULAR VEINS: No jugular venous pressure or distention. CERVICAL LYMPH NODES: Nontender, nonenlarged. THYROID: Not enlarged. Nontender. No nodules. LUNGS: Respiratory effort, unlabored. CHEST: Normal curvature. No thoracic deformity. No chest wall tenderness. Percussion, resonant. Auscultation, clear. No wheezes, no rales, no rhonchi. CARDIOVASCULAR: Precordial exam, nondisplaced. No heaves or pericardial thrills. Rate and rhythm, regular. Heart sounds, normal S1, normal S2. No S3, no gallop, no rub. Systolic murmur, not heard. Diastolic murmur, not heard. EXTREMITIES: No cyanosis, no edema. Peripheral pulses, full and equal in all extremities, except as noted. No bruits appreciated. ABDOMEN: Soft, nondistended. Normal aorta. No bruit. Nontender. No masses. Liver, nontender, no hepatomegaly. Spleen, nontender, no splenomegaly. MUSCULOSKELETAL: No joint tenderness. No joint swelling. No erythema. NEUROLOGICAL: Normal gait, normal strength, normal tone. SKIN: Warm and dry. REVIEW OF SYSTEMS: The patient reports easy bruising but reports no swollen glands. The patient reports no fever, no night sweats, no significant weight gain, no significant weight loss. No significant exercise tolerance. The patient reports no dry eyes, no irritation, no vision change. The patient reports no difficulty hearing and no ear pain. The patient reports no frequent nose bleeds or nose and sinus problems. The patient reports on arm pain on exertion. No shortness of breath while lying down. No history of heart murmur. CONSULT REPORT [id number] BIMAL MOLINA The patient reports no cough, no wheezing or coughing up blood. The patient reports no abdominal pain, no vomiting. Normal appetite. No diarrhea and not vomiting blood. No nausea and no constipation. The patient reports no incontinence. No difficulty urinating. No hematuria. No increased frequency. The patient reports no muscle aches. No weakness, no arthralgias, no back pain. No swelling of the extremities. The patient reports no abnormal mole, no jaundice, no rashes. Reports no loss of consciousness. No weakness and no numbness. No seizures, dizziness or headaches. The patient reports no depression, no sleep disturbance, feeling safe in a relationship and no alcohol abuse. The patient reports no fatigue. Reports no runny nose or sinus pressure. No itching, no hives, and no frequent sneezing. OVERALL IMPRESSION: Stable from a cardiac standpoint. The atrial fibrillation is not new. The rate is controlled on his current medications. He is not having signs or symptoms of ischemic heart disease. Blood pressure and heart rate are well controlled at this time, would leave him on amiodarone, but take him off the Eliquis, leave him on Plavix, most likely his anemia is from a bleed as well as chronic renal insufficiency. They are monitoring GI, but would definitely hold the Eliquis. No other cardiac workup or treatment is necessary at this time. TRANSINT:[id number] Voice Confirmation ID: [id number] DOCUMENT ID: [id number] SABI ESPANA MD at 1416 CC: [id number] DICTATION DATE: 06/26/16 1651 [employer]LE [employer] PLM CONSULTANT: 06/26/161922 DIS IN 07/01/16 [id number] [place] [address]
== END 2016-07-01 14:31 | disposition home or self-care (01) | DRG 292 ==
LOC: D.ER 10:54 → D.M2 12:55
PROVIDERS: Emergency Medicine; Internal Medicine Nephrology; ADMIT Family Medicine
PROC: 0T9B70Z Drainage of Bladder with Drainage Device, Via Natural or Artificial Opening (ICD-10-PCS; principal; 2016-06-27)
DX: I13.0 Hypertensive heart and chronic kidney disease with heart failure and stage 1 through stage 4 chronic kidney disease, or unspecified chronic kidney disease (principal); N17.9 Acute kidney failure, unspecified; I48.92 Unspecified atrial flutter; N18.4 Chronic kidney disease, stage 4 (severe); I50.22 Chronic systolic (congestive) heart failure; D64.9 Anemia, unspecified; E11.22 Type 2 diabetes mellitus with diabetic chronic kidney disease; E11.40 Type 2 diabetes mellitus with diabetic neuropathy, unspecified; E87.5 Hyperkalemia; M25.522 Pain in left elbow; M25.532 Pain in left wrist; I48.91 Unspecified atrial fibrillation; N32.9 Bladder disorder, unspecified; I25.10 Atherosclerotic heart disease of native coronary artery without angina pectoris; E87.6 Hypokalemia; Z95.5 Presence of coronary angioplasty implant and graft

== ENCOUNTER 2016-08-22 05:54 | Outpatient (CLI) | payer MEDICARE, OTHER ==
[~2016-08-22] VITALS: Ht 177.8 cm; Wt 86.4 kg
--- NOTE | ~2016-08-22 | HEMODYNAMI ---
PATIENT:BIMAL PALOMINO MEDICAL RECORD: [id number] : 46 LOCATION:DXinCAT ADMISSION DATE: 08/22/16 Generatedon:08/22/201610:08 Patient name: BIMAL PALOMINO Patient #: [id number] SSN: [id number] : 1950 Date of study: 08/22/2016 Page: Of Hemodynamic Procedure Report Patient Data Patient Demographics Procedure consent was obtained First Name: BIMAL Gender: Male Last Name: CANDELARIO : 1950 Middle Initial: A Age: 66 year(s) Patient #: [id number] Race: SSN: [id number] Additional ID: [id number] Contact details Address: [address] [place] [address] [place] [facility] [place]: [address] Past Medical History Allergies: No known allergies Admission Admission Data Admission Date: 08/22/2016 Admission Time: 5:54 Arrival Date: 08/22/2016 Arrival Time: 0:00 Admit Source: Other Insurance Payor: Medicare, State-specific plan Height (in.): 62 BSA: 1.89 (m2) Height (cm.): 157.48 BMI: 35.67 (kg/m2) Weight (lbs.): 195 Weight (kg.): 88.45 Lab Results Lab Result Date: 08/22/2016 Lab Result Time: 0:00 Biochemistry Name Units Result Min Max BUN mg/dl 98 --(----)-* 7 18 Creatinine mg/dl 5.6 --(----)-* 0.6 1.3 CBC Name Units Result Min Max Hemoglobin g/dl 8.3 *-(----)-- 13.5 17.5 Procedure Procedure Types Cath Procedure Diagnostic Procedure [facility] w/Coronaries PCI Procedure Coronary Stent Initial Miscellaneous Procedures Moderate Sedation up to 30 minutes Procedure Description Procedure Date Procedure Date: 08/22/2016 Procedure Start Time: 9:51 Procedure End Time: 10:03 Procedure Staff Name Function Mike Gtz MD Performing Physician Vickie Ayala RT Scrub Elyssa Kinney RN Nurse Debra Aguero RT Hide House Supervisor Debra Aguero RT Monitor Procedure Data Cath Procedure Fluoroscopy Diagnostic fluoroscopy Total fluoroscopy Time: 3 time: 3 min min Diagnostic fluoroscopy Total fluoroscopy dose: 471 dose: 471 mGy mGy Contrast Material Contrast Material Type Amount (ml) Isovue 370 44 Entry Location Entry Primary Successful Side Size Upsize Upsize Entry Closure Succes sful Closure Location (Fr) 1 (Fr) 2 (Fr) Remarks Device Remarks Femoral Right 5 Fr 6 Fr Exoseal artery Short Estimated blood loss: 5 ml Diagnostic catheters Device Type Used For End Catheter Placement Cordis 5Fr Pigtail LV Angiography Catheter (MP) Cordis 5Fr JL 4.0 Left Coronary Catheter (MP) Angiography Cordis 5Fr 3DRC Catheter Right Coronary (MP) Angiography Procedure Complications No complications Procedure Medications Medication Administration Route Dosage Oxygen NC 2 l/min Lidocaine 2% added to field 20 Heparin Flush Bag added to field 2 bags (1000units/500ml NS) Versed I.V. 1 mg Fentanyl I.V. 50 mcg Heparin Bolus I.V. 4000 units Hemodynamics Rest BSA: 1.89 (m2) HGB: 8.3 (g/dl) O2 Consumption: Estimated: 230.37 (ml/min) O2 Con sumption indexed: Estimated:121.89 (ml/min/m) Heart Rate: 85 (bpm) Pressure Samples Time Site Value (mmHg) Purpose Heart Use Rate(bpm) 9:53 LV 131/-35,26 Snapshot 98 Snapshots Pre Cath Intra NCS Post Cath Vital Signs Time Heart Resp SPO2 NIBP (mmHg) Rhythm Pain Sedation Rate (ipm) (%) Status Level (bpm) 9:42:49 85 18 92 135/68(109) NSR 0 (11) 10(A) , No pain 9:47:05 92 21 90 136/67(102) NSR 0 (11) 10(A) , No pain 9:51:23 92 22 91 147/67(97) NSR 0 (11) 10(A) , No pain 9:55:41 96 24 91 144/64(102) NSR 0 (11) 10(A) , No pain 9:59:59 105 25 91 140/65(94) NSR 0 (11) 10(A) , No pain Medications Time Medication Route Dose Verified Delivered Reason Notes Effectiveness by by 9:39:56 Oxygen NC 2 Mike Bergeron used for l/min Ulisses Kinney RN procedure 9:40:02 Lidocaine 2% added 20ml Mike Mckeon for local to vial Ulisses Gtz MD anesthetic field 9:40:08 Heparin Flush added 2 Mike Mckeon used for Bag to bags Ulisses Gtz MD procedure (1000units/500ml field NS) 9:49:17 Versed I.V. 1 mg Mike Bergeron for sedation Ulisses Kinney RN 9:49:23 Fentanyl I.V. 50 Mike Aparicioie for sedation mcg Ulisses Kinney RN 9:56:46 Heparin Bolus I.V. 4000 Mike Bergeron for verifie d units Ulisses Kinney RN anticoagulation with dr gtz Procedure Log Time Note 9:26:50 Patient Height : 157.48 cm 9:27:04 Patient Weight : 88.45 kg 9:27:05 Arrival Date: 08/22/2016 12:00:00 AM 9:27:07 Admit Source: Other 9:27:15 Insurance Payor : State-specific plan, Medicare 9:28:15 Diagnostic Cath status Elective 9:28:17 Debra Aguero RT(R) sent for patient. Start room use. 9:28:19 Time tracking: Regular hours 9:28:24 Plan of Care:Hemodynamics will remain stable., Cardiac rhythm will remain stable., Comfort level will be maintained., Respiratory function will remain adequate., Patient/ family verbilizes understanding of procedure., Procedure tolerated without complication., Recovers from procedure without complications.. 9:28:44 H&P Date Dictated: 08/16/2016 Within 30 days and on chart., H&P Addendum completed by physician on day of procedure. (MUST COMPLETE FOR ALL OUTPATIENTS). 9:29:19 Lab Result : BUN 98 mg/dl 9:29:19 Lab Result : Creatinine 5.6 mg/dl 9:29:19 Lab Result : Hemoglobin 8.3 g/dl 9:29:27 Lab results completed and on chart. 9:32:16 ACC Patient presents with Stable Angina CCS Anginal Class 2--Slight limitation of ordinary activity. 9:32:52 Warm blankets applied, and chirag hugger turned on for patient comfort. 9:32:53 Correct patient and procedure confirmed by team. 9:32:55 Signed procedure consent form obtained from patient. 9:32:57 Pre-procedure instructions explained to patient. 9:32:59 Family in waiting room. 9:33:01 Patient NPO since Midnight. 9:33:33 Is the patient allergic to Iodine/contrast media? No. 9:33:36 Was the patient premedicated? No 9:33:37 Is patient on blood thinner?Yes 9:33:40 ACC The patient was administered the following blood thiners within the last 24 hours: ACCPlavix 9:33:43 Patient diabetic? Yes. 9:33:52 If diabetic: On Metformin? No 9:33:58 Snore? Yes 9:34:08 Patient pain scale 0/10 ?. 9:34:24 IV patent on arrival in left hand with 0.9% NaCl at KVO. 9:34:33 Right groin area was prepped with chlora-prep and draped in sterile fashion 9:34:42 Alarms reviewed by R. N. 9:34:44 Sharps counted by scrub and verified by R.N. 9:39:56 Oxygen 2 l/min NC was administered by Elyssa Kinney RN; used for procedure; 9:40:02 Lidocaine 2% 20ml vial added to field was administered by Mike Gtz MD; for local anesthetic; 9:40:08 Heparin Flush Bag (1000units/500ml NS) 2 bags added to field was administered by Mike Gtz MD; used for procedure; 9:41:38 Patient received from Pre/Post Procedure Room to CCL 2 Alert and oriented. Tansferred to table in Supine position. 9:41:40 ECG and BP/O2 sat monitors applied to patient. 9:41:40 Vital chart was started 9:41:43 Baseline sample Acquired. 9:41:49 Rhythm: sinus rhythm 9:41:51 Full Disclosure recording started 9:41:55 Pre-op teaching completed and patient verbalized understanding. 9:42:02 Previous problem with sedation/anesthesia? No ? 9:42:05 Sleep apnea? No 9:42:06 Deviated septum? No 9:42:06 Opens mouth fully? Yes 9:42:07 Sticks out tongue? Yes 9:42:09 Airway obstruction? No ? 9:42:11 Dentures? No ? 9:43:02 Use device set Femoral Dx 9:43:03 Acist Syringe opened to sterile field. 9:43:04 Bag Decanter opened to sterile field. 9:43:04 Medline Cath Pack opened to sterile field. 9:43:04 Terumo 5Fr Montegut Sheath opened to sterile field. 9:43:05 St Sal 260cm J .035 wire opened to sterile field. 9:43:06 Acist Hand Control opened to sterile field. 9:43:07 Acist Manifold opened to sterile field. 9:43:07 Diagnostic Infinity 5Fr Multipack catheter opened to sterile field. 9:43:08 Tegaderm 4 x 4 opened to sterile field. 9:45:17 Physician arrived 9:45:17 --------ALL STOP TIME OUT------ 9:45:18 Final Timeout: patient, procedure, and site verified with staff and physician. All members of the team are in agreement. 9:45:20 Right groin site verified by team. 9:45:22 Physical assessment completed. ASA score P 3 - A patient with severe systemic disease as per Mike Gtz MD. 9:45:25 Sedation plan: IV Moderate Sedation Versed, Fentanyl 9:49:17 Versed 1 mg I.V. was administered by Elyssa Kinney RN; for sedation; 9:49:23 Fentanyl 50 mcg I.V. was administered by Elyssa Kinney RN; for sedation; 9:50:53 Procedure started. 9:51:00 Local anesthetic to right femoral artery with Lidocaine 2% by Mike Gtz MD.INITIAL ACCESS ONLY 9:51:10 A 5 Fr sheath was inserted into the Right Femoral artery 9:51:44 A Cordis 5Fr Pigtail Catheter (MP) was advanced over the wire and used for LV Angiography. 9:53:36 LV hemodynamics recorded. 9:53:38 LV gram done using MERINO 9:53:40 Injector settings: Ml/sec: 5, Volume: 15, 9:53:47 EF : 50 % 9:53:50 Catheter removed. 9:53:57 A Cordis 5Fr JL 4.0 Catheter (MP) was advanced over the wire and used for Left Coronary Angiography. 9:54:35 LCA angiography performed. 9:54:38 Injector settings: Ml/sec: 3, Volume: 6, 9:55:34 Catheter removed. 9:55:41 A Cordis 5Fr 3DRC Catheter () was advanced over the wire and used for Right Coronary Angiography. 9:56:04 RCA angiography performed. 9:56:07 Injector settings: Ml/sec: 3, Volume: 6, 9:56:09 Catheter removed. 9:56:10 Proceeding to intervention. 9:56:35 Cordis 6FR XBLAD 4.0 guide catheter opened to sterile field. 9:56:36 [employer] BasixCompak Inflation Kit opened to sterile field. 9:56:39 Rosenbaum Whisper J 300cm 0.014 guide wire opened to sterile field. 9:56:40 Terumo 6Fr Montegut Sheath opened to sterile field. 9:56:46 Heparin Bolus 4000 units I.V. was administered by Elyssa Kinney RN; for anticoagulation; verified with dr gtz 9:57:20 Sheath upsized to a 6 Fr Short. 9:57:46 6 Fr xblad 4 guide catheter was inserted over the wire 9:57:53 whisper wire advanced. 9:57:55 Wire advanced across lesion. 9:59:57 Inflation Number: 1 A Medtronic Integrity 3.0 X 12 stent was prepped and advanced across the Mid LAD. The stent was deployed at 13 SEN for 0:10 (min:sec). 10:00:13 Stent catheter was removed intact over wire. 10:00:14 Wire removed. 10:00:14 Guide catheter removed. 10:00:23 Cordis 6Fr Exoseal opened to sterile field. 10:01:02 Sheath removed intact; hemostasis achieved with Exoseal to the Right Femoral artery. 10:01:04 Procedure ended.(Physican Out) 10:01:35 Fluoroscopy time 03.00 minutes. 10:02:17 Flurop Dose total: 471 10:02:17 Fluoroscopy dose: 471 mGy 10:02:21 Contrast amount:Isovue 370 44ml. 10:02:22 Sharps counted by scrub and verified by R.N. 10:02:23 Insertion/operative site no bleeding no hematoma. 10:02:27 Post-op/insertion site Right Femoral artery dressed using a 4 x 4 and Tegaderm. 10:02:29 Post right femoral artery:stable 10:02:31 Post Procedure Pulses reassessed and unchanged 10:02:38 Post procedure rhythm: unchanged. 10:02:40 Estimated blood loss: 5 ml 10:02:42 Post procedure instruction explained to patient.Patient verbalizes understanding. 10:02:42 Patient needs reinforcement of post procedure teaching. 10:02:53 Procedure type changed to Cath procedure, Diagnostic procedure, LHC, LHC w/Coronaries, PCI procedure, Coronary Stent Initial, Miscellaneous Procedures, Moderate Sedation up to 30 minutes 10:02:57 Procedure and supply charges have been captured, reviewed, submitted and are correct. 10:03:08 Procedure Complication : No complications 10:03:10 Vital chart was stopped 10:03:10 See physician's report for complete and final results. 10:03:14 Report given to Pre/Post Procedure Room. 10:03:16 Patient transfered to Pre/Post Procedure Room with Stretcher. 10:03:18 Procedure ended. 10:03:18 Full Disclosure recording stopped 10:03:29 ACC-PCI Only Patient was given prescriptions, or instructed by Mike Gtz MD to start/continue the following medications upon discharge: Plavix 10:03:30 End room use (Document Last) 10:06:34 St Sal Femstop Arch Gold opened to sterile field. 10:06:46 Femstop placed over the right femoral artery at 150 mmHg. Hemostasis achieved. Intervention Summary Intervention Notes Time ActionType Lesion and Equipment Action# Pressure Duration Attributes Used 9:59:57 Place stent Mid LAD Medtronic 1 13 00:10 Integrity 3.0 X 12 stent Device Usage Item Name Manufacture Quantity Catalog Hospital Part Current Minimal L ot# / Number Charge Number Stock Stock Serial# Code Acist Acist 1 14736 [id number] [id number] 145993 20 Syringe Medical [employer] Inc Bag Microtek 1 2002S 560994 51671 073289 5 [employer] Medline Cardinal 1 [id number] 224763 78345 493968 5 Cath Leti Arts Terumo 5Fr Terumo 1 [id number] 442324 559362 025713 [address] Sal St Sal 1 [id number] 025134 853341 254281 30 260cm J .035 wire Acist Hand Acist 1 25753 021069 170050 750500 5 [employer] Inc Acist Acist 1 28343 686423 078916 732176 5 [facility] Medical Systems Inc Diagnostic Cardinal 1 [id number] 430189 72794 349680 30 [facility] [employer] 5Fr Multipack catheter Tegaderm 4 3M 1 1626W 591138 996690 669901 5 x 4 Cordis 5Fr Cardinal 1 944459 5 Pigtail Health Catheter (MP) Cordis 5Fr Cardinal 1 567522 5 JL 4.0 Health Catheter (MP) Cordis 5Fr Cardinal 1 007606 5 3DRC Health Catheter (MP) Cordis 6FR Cardinal 1 [id number] 177230 660993 254801 3 XBLAD 4.0 Health guide catheter Merit Merit 1 [id number] 930958 690897 072647 15 BasixCompak Medical Inflation Kit Rosenbaum Rosenbaum 1 [id number] 689911 650034 876882 5 Whisper J Vascular 300cm 0.014 guide wire Terumo 6Fr Terumo 1 [id number] 434847 421962 109291 40 Montegut Sheath Medtronic Medtronic 1 [id number] 301947 067049 369479 1 0 [id number] Integrity 3.0 X 12 stent Cordis 6Fr Cardinal 1 EX600 284292 431105 975100 10 [employer] Health [facility] Sal St Sal 1 [id number] 646919 271237 227656 5 Femstop Arch Gold Signature Audit [place] Stage Time Signature Unsigned Intra-Procedure 08/22/2016 Debra Aguero 10:08:04 AM RT(R) Signatures Monitor : Debra Aguero RT Signature : Date : Time : [facility] [address] [place], [place] [address]
[~2016-08-22 05:54] MED LIST changes: +CARAFATE1 G PO; +K-TAB10 MEQ PO; +PEPCID20 MG PO; +SODIUM BICARBO650 MG PO
[2016-08-22] MEDS ORDERED: METOLAZONE5 MG PO (07:01)
[2016-08-22] MEDS ORDERED: SYNTHROID50 MCG PO (07:01)
[2016-08-22 07:08] VITALS: BP 127/47; Ht 177.8 cm; Wt 86.4 kg
[2016-08-22 07:18] LABS: BASOPHILS 0.2 % (0.0-2.0); EOSINOPHILS 2.4 % (0-7); HEMATOCRIT 27.9 % (42.0-54.0); HEMOGLOBIN 8.3 g/dL (13.5-17.5); IMMATURE GRANULOCYTES 0.3 % (0-5); LYMPHOCYTES 7.7 % (15-50); MCH 27.1 pg (26.0-34.0); MCHC 29.7 g/dL (31.0-37.0); MCV 91.2 fL (80.0-100.0); MEAN PLATELET VOLUME 9.8 fL (7.4-10.4); MONOCYTES 10.8 % (2-11); NEUTROPHILS 78.6 % (40-80); RBC 3.06 10x6/uL (4.20-6.10); RDW 18.5 % (11.5-14.5); WBC 11.9 10x3/uL (4.8-10.8)
[2016-08-22 07:33] LABS: PLATELET COUNT 234 10x3/uL (130-400)
[2016-08-22 07:44] LABS: ANION GAP 17.5 mmol/L (8-16); CALCIUM 9.5 mg/dL (8.5-10.1); CARBON DIOXIDE 25.4 mmol/L (21.0-32.0); CREATININE - SERUM 5.6 mg/dL (0.6-1.3); POTASSIUM - SERUM 3.9 mmol/L (3.5-5.1)
--- NOTE | 2016-08-22 09:28 | NUR ---
0900 DR ESPANA NOTIFIED OF GLUCOSE 54 WITH LAB THIS AM, NEW ORDER RECEIVED.
--- NOTE | 2016-08-22 19:38 | NUR ---
1040-NEW ORDERS FROM DR ESPANA, LASIX 60MG GIVEN SIVP, 16 FR WALL CATH INSERTED USING STERILE TECHNIQUE, 500 CC CLEAR YELLOW URINE NOTED, O2 SAT AT 86% ON NON-REBREATHER AND SLIGHTLY LABORED, AT SIDE, RIGHT GROIN WITH FEMSTOP IN PLACE - MOVING RIGHT LEG, NO HEMATOMA OR BLEEDING NOTED. 1055-SAT REMAINS LOW BUT RATE DECREASED, RIGHT GROIN WITH FEMSTOP IN PLACE, NO BLEEDING OR HEMATOMA NOTED. DENIES CHEST PAIN 1110-SAT AT 90% 1125-SAT AT 95%- SWITCHED TO OXIMIZER AT 10L, SAT AT 90, BREATHING UNLABORED AT THIS TIME. RIGHT GROIN CDI, FEMSTOP PRESSURE OFF, NO HEMATOMA OR BLEEDING NOTED, SOFT TO TOUCH BLEEDING, SOFT TO TOUCH
--- NOTE | 2016-08-22 19:57 | NUR ---
1415-FIRST UNIT PRBC INFUSING VIA PUMP- CHECKED X 2 RN'S, NO DISTRESS NOTED AT THIS TIME, SEE BLOOD SHEET FOR FREQUENT V/S, RIGHT GROIN REMAINS UNCHANGED
--- NOTE | 2016-08-22 20:01 | NUR ---
1600-FIRST UNIT PRBC COMPLETED, NO S/S REACTION NOTED, RIGHT GROIN CDI, SOFT TO TOUCH 1620-SECOND UNIT PRBC INFUSING VIA PUMP, CHECKED X 2 RN'S, PIV SITE CDI
--- NOTE | 2016-08-22 20:06 | NUR ---
1815-SECOND UNIT PRBC COMPLETED, VSS. DENIES NEEDS, WALL OUT-1800CC 1900-IV D'C WITH CATH TIP INTACT, UP IN ROOM-VOID 200CC, VERBAL INSTRUCTIONS GIVEN TO PT AND , UNDERSTOOD, RIGHT GROIN CDI, NO HEMATOMA OR BLEEDING NOTED. RESP EVEN AT D'C.
--- NOTE | 2016-08-28 14:38 | OP ---
PATIENT NAME: BIMAL PALOMINO MEDICAL RECORD: [id number] :46 LOCATION:D.CAT ADMISSION DATE: SURGEON: SABI ESPANA MD DATE OF OPERATION: 08/22/2016 PROCEDURES: 1. PTCA stent LAD. 2. Left heart catheterization. 3. Selective coronary angiography. 4. Left ventriculogram. INDICATION: Angina and coronary artery disease. PROCEDURE IN DETAIL: After informed consent was obtained and after detailed explanation of risks, benefits as well as alternative therapies, the patient elected to proceed with angiogram and angioplasty. The right femoral area was prepped and draped in normal sterile fashion. The right femoral artery was cannulated via modified Seldinger technique with placement of 6-Uzbek sheath. All catheters exchanged through this sheath. FINDINGS: The left ventriculogram was performed in standard 30-degree MERINO view, reveals good cardiac wall motion throughout all segments. Overall ejection fraction 50%. SELECTIVE CORONARY ANGIOGRAPHY: 1. Left main is with no significant angiographic disease. 2. Left circumflex has moderate irregularities, but no flow-limiting stenosis. 3. Right coronary has moderate irregularities, but no flow-limiting stenosis. 4. The left anterior descending has previously placed stents, these are widely patent; however, just after this, there is a 70% to 80% stenosis. PTCA STENT OF THE LAD: The stent used was a 3.0 x 12 mm Integrity taken to 21 atmospheres. Result was 0% residual stenosis. OVERALL IMPRESSION: Successful percutaneous transluminal coronary angioplasty stent of the left anterior descending going from 70% to 80% initial stenosis to 0% residual. TRANSINT:[id number] Voice Confirmation ID: [id number] DOCUMENT ID: [id number] SABI ESPANA MD at 1438 CC: [id number] DICTATION DATE: 08/22/16 1005 REINFORCED CONCRETE INSPECTOR: 08/22/16 1019 DEP CLI 08/22/[address] [address]
== END 2016-08-22 19:15 | disposition home or self-care (01) ==
LOC: D.CATH 05:54
PROVIDERS: Internal Medicine Interventional Cardiology
DX: I25.119 Atherosclerotic heart disease of native coronary artery with unspecified angina pectoris (principal); Z95.5 Presence of coronary angioplasty implant and graft